=== PATIENT | male | born 1950 | race African-American/Black ===

== ENCOUNTER 2017-05-11 20:11 | Inpatient (IN) | payer MEDICARE, OTHER ==
[2017-05-11 21:50] VITALS: BMI 28.1
[2017-05-11] MEDS ORDERED: LIDOCAINE PATCH REMOVAL MC SCH (22:00)
--- NOTE | 2017-05-11 22:26 | HP ---
COWS - Scale Resting Pulse: 0= CA 80 or Below Sweatin= Chills/Flushing Restless Observation: 1= Difficult to Sit Still Pupil Size: 0= Normal to Room Light Bone or Joint Aches: 2= Severe Diffuse Aches Runny Nose/ Eye Tearin= Runny Nose/Eyes GI Upset > 30mins: 2= Nausea/Diarrhea Tremor Observation: 2= Slight Tremor Visible Yawning Observation: 1= 1-2x During Session Anxiety or Irritability: 2=Irritable/Anxious Goose Flesh Skin: 0=Smooth Skin COWS Score: [address] [facility] Chief Complaint: withdrawal sx Allergies/Adverse Reactions: Allergies Allergy/AdvReac Type Severity Reaction Status Date / Time No Known Allergies Allergy Verified 05/11/17 22:18 History of Present Illness: 66 years old male with long history of heroin cocaine dependence, has hiv bph gerd hypertension hyperlipidemia, and depression is admitted to detox Exam Limitations: No Limitations - Ebola screening Have you traveled outside of the country in the last 21 days: No (N) Have you had contact with anyone from an Ebola affected area: No Have you been sick,other than usual withdrawal symptoms: No Do you have a fever: No - Review of Systems Constitutional: Changes in sleep, Weight Stable EENT: reports: Dental Problems (upper teeth missing) Respiratory: reports: SOB with Exertion, Productive cough (white) Cardiac: reports: No Symptoms Reported GI: reports: Nausea, Poor Fluid Intake, Indigestion, Abdominal cramping : reports: Incontinence Musculoskeletal: reports: Back Pain, Joint Pain, Muscle Pain, Neck Pain Integumentary: reports: No Symptoms Reported Neuro: reports: Tremors Endocrine: reports: No Symptoms Reported Hematology: reports: No Symptoms Reported Psychiatric: reports: Judgement Intact, Orientated x3, Anxious, Depressed Other Systems: Reviewed and Negative Patient History - Patient Medical History Hx Anemia: No Hx Asthma: No Hx Chronic Obstructive Pulmonary Disease (COPD): No Hx Cancer: No Hx Cardiac Disorders: No Hx Congestive Heart Failure: No Hx Hypertension: Yes Hx Hypercholesterolemia: Yes Hx Pacemaker: No HX Cerebrovascular Accident: No Hx Seizures: No Hx Dementia: No Hx Diabetes: No Hx Gastrointestinal Disorders: Yes Hx Liver Disease: No Hx Genitourinary Disorders: Yes Hx Sexually Transmitted Disorders: No Hx Renal Disease (ESRD): No Hx Thyroid Disease: No Hx Human Immunodeficiency Virus (HIV): Yes (1985) Hx Hepatitis C: No Hx Depression: Yes Hx Suicide Attempt: No Hx Bipolar Disorder: No Hx Schizophrenia: No - Patient Surgical History Past Surgical History: Yes Hx Neurologic Surgery: No Hx Cataract Extraction: No Hx Cardiac Surgery: No Hx Lung Surgery: No Hx Breast Surgery: No Hx Breast Biopsy: No Hx Abdominal Surgery: No Hx Appendectomy: No Hx Cholecystectomy: No Hx Genitourinary Surgery: No Hx Orthopedic Surgery: Yes (hips bilaterally 1987) Anesthesia Reaction: No - PPD History Previous Implant?: Yes Documented Results: Negative w/o proof Implanted On Prior R Admission?: No PPD to be Administered?: Yes - Smoking Cessation Smoking history: Never smoked Have you smoked in the past 12 months: No Hx Chewing Tobacco Use: No Initiated information on smoking cessation: No - Substance & Tx. History Hx Alcohol Use: Yes Hx Substance Use: Yes Substance Use Type: Alcohol, Cocaine, Heroin Hx Substance Use Treatment: Yes (01/2017 [facility]) - Substances Abused Alcohol Route: Oral Frequency: 1-2 times per week Amount used: [id number] Age of first use: 11 Date of Last Use: 05/11/17 Heroin Route: Inhalation Frequency: Daily Amount used: 20 bags Age of first use: 15 Date of Last Use: 05/11/17 Cocaine Route: Inhalation Frequency: 1-2 times per week Amount used: 50$ Age of first use: 19 Date of Last Use: 05/11/17 Family Disease History - Family Disease History Family Disease History: Other: Father (), Mother () Admission Physical Exam S - Vital Signs Vital Signs: Vital Signs - 24 hr 05/11/17 21:48 Temperature 97.2 F L Pulse Rate 76 Respiratory 18 Rate Blood Pressure 122/77 - Physical General Appearance: Yes: Nourished, Appropriately Dressed, Mild Distress, Alcohol on Breath, Tremorous, Irritable, Sweating, Anxious HEENTM: Yes: Hearing grossly Normal, Normal ENT Inspection, Normocephalic, Normal Voice Respiratory: Yes: Chest Non-Tender, Lungs Clear, Normal Breath Sounds, No Respiratory Distress, No Accessory Muscle Use Neck: Yes: Supple, Trachea in good position Breast: Yes: Breasts Symetrical Cardiology: Yes: Regular Rhythm, Regular Rate, S1, S2 Abdominal: Yes: Non Tender, Soft, Increased Bowel Sounds Genitourinary: Yes: Within Normal Limits Back: Yes: Normal Inspection Musculoskeletal: Yes: full range of Motion, Gait Steady, Back pain, Muscle Pain Extremities: Yes: Normal Inspection, Normal Range of Motion, Non-Tender, Tremors Neurological: Yes: Fully Oriented, Alert, Motor Strength 5/5, Normal Response, Depressed Affect Integumentary: Yes: Warm Lymphatic: Yes: Within Normal Limits - Diagnostic (1) Opioid dependence with withdrawal Current Visit: Yes Status: Acute (2) Depression (emotion) Current Visit: Yes Status: Suspected Qualifiers: Depression Type: dysthymia Qualified Code(s): F34.1 - Dysthymic disorder (3) HIV (human immunodeficiency virus infection) Current Visit: Yes Status: Chronic (4) BPH (benign prostatic hyperplasia) Current Visit: Yes Status: Chronic Qualifiers: Lower urinary tract symptom presence: symptoms present Lower urinary tract symptom detail: post-void dribbling Qualified Code(s): N40.1 - Benign prostatic hyperplasia with lower urinary tract symptoms; N39.43 - Post- void dribbling (5) GERD (gastroesophageal reflux disease) Current Visit: Yes Status: Chronic Qualifiers: Esophagitis presence: without esophagitis Qualified Code(s): K21.9 - Gastro-esophageal reflux disease without esophagitis (6) Hypertension Current Visit: Yes Status: Chronic Qualifiers: Hypertension type: essential hypertension Qualified Code(s): I10 - Essential (primary) hypertension (7) Hyperlipidemia Current Visit: Yes Status: Chronic Qualifiers: Hyperlipidemia type: pure hypercholesterolemia Qualified Code(s): E78.00 - Pure hypercholesterolemia, unspecified; E78.0 - Pure hypercholesterolemia Cleared for Admission [facility] - Detox or Rehab [facility] Level of Care: Medically Managed Detox Regimen/Protocol: Methadone [facility] Breath Alcohol Content Breath Alcohol Content: 0.018 Urine Drug Screen - Results Drug Screen Negative: No Urine Drug Screen Results: KIRSTY-Cocaine, OPI-Opiates, TCA-Tricyclic Antidepress, OXY-Oxycodone
[2017-05-11] MEDS ORDERED: ACETAMINOPHEN 325 MG TABLET (FP) PO PRN (22:34)
[2017-05-11] MEDS ORDERED: diphenhydrAMINE HCL 50 MG CAPSULE PO PRN (22:34)
[2017-05-11] MEDS ORDERED: MENTHOL/PHENOL 1 EACH UD MM PRN (22:34)
[2017-05-11] MEDS ORDERED: MAG HYDROX/AL HYDROX/SIMETH 30 ML UNIT-DOSE CUP PO PRN (22:34)
[2017-05-11] MEDS ORDERED: P-EPHED 60MG/TRIPROLIDI 2.5MG TABLET PO PRN (22:34)
[2017-05-11] MEDS ORDERED: MAGNESIUM CITRATE 300 ML BOTTLE PO PRN (22:34)
[2017-05-11] MEDS ORDERED: guaiFENesin/D-METHORPHAN HB 10 ML UNIT-DOSE CUPS PO PRN (22:34)
[2017-05-11] MEDS ORDERED: METHADONE HCL 10 MG TABLET (FOR DETOX USE ONLY) PO ONE ×2 (22:34→23:00)
[2017-05-11] MEDS ORDERED: diazePAM 5 MG TABLET PO PRN (22:34)
[2017-05-11] MEDS ORDERED: LOPERAMIDE HCL 2 MG CAPSULE PO PRN (22:34)
[2017-05-11] MEDS ORDERED: MAGNESIUM HYDROX 2400MG/30ML ORAL SUSPENSION 30 ML CUP PO PRN (22:34)
[2017-05-11 23:45] VITALS: PULSE 80; TEMP 98.9
[2017-05-12 00:48] LABS: URINE APPEARANCE SLCLOUDY; URINE BILIRUBIN NEGATIVE (NEGATIVE); URINE BLOOD NEGATIVE (NEGATIVE); URINE COLOR YELLOW; URINE GLUCOSE (UA) NEGATIVE (NEGATIVE); URINE KETONE NEGATIVE (NEGATIVE); URINE LEUK ESTERASE NEGATIVE (NEGATIVE); URINE NITRITE NEGATIVE (NEGATIVE); URINE PROTEIN NEGATIVE (NEGATIVE)
--- NOTE | 2017-05-12 02:06 | PN ---
[facility] Progress Note Note: [employer] called to the floor after RN reported pt. was bleeding profusely from his right foot. Upon reaching the floor, pt. was found on the ground with blood soaked towels wrapped round his foot and blood on the ground. Reportedly the pt. had stated that had a history of varicose veins bursting. Pt. was hypotenisve and lethargic. 2L of O2 was administered via NC, pressure was applied to his right foot. LOC improved. Pt. stated he needed to move his bowels. He insisted that he needed to use the bathroom immediately. He was advised to stay on the ground and evacuate his bowels on the ground but the refused and dragged himself into the bathroom and onto the toilet. Pt. lost consciousness after using the toilet. He was put on the ground and Ambu bag applied with 15L of oxygen. IV inserted and NS administered. LOC improved. EMS arrived and he was transported to [facility] ER for continued care. Report given to Dr. Doherty.
[2017-05-12 02:43] VITALS: BP 90/60
[2017-05-12] MEDS: CYCLOBENZAPRINE HCL 10 MG TABLET (FP) PO SCH ×2 (08:19→14:16)
--- NOTE | 2017-05-12 09:59 | EKG ---
Test Reason : Blood Pressure : / mmHG Vent. Rate : 092 BPM Atrial Rate : 092 BPM P-R Int : 148 ms QRS Dur : 094 ms QT Int : 384 ms P-R-T Axes : 046 032 016 degrees QTc Int : 474 ms NORMAL SINUS RHYTHM INCOMPLETE RIGHT BUNDLE BRANCH BLOCK BORDERLINE ECG NO PREVIOUS ECGS AVAILABLE Confirmed by MALIK DYER MD ([id number]) on 05/12/2017 9:59:24 AM Referred By: Confirmed By:MALIK DYER MD
[2017-05-12] MEDS ORDERED: PRENATAL VITAMINS W/ FOLIC ACID TABLET (FP) PO SCH (10:00)
[2017-05-12] MEDS ORDERED: PATIENT'S OWN MEDICATION (NON-FORMULARY) (Darunavir Ethanolate [Prezista -] 800 MG) PO SCH (10:00)
[2017-05-12] MEDS ORDERED: HYDROCHLOROTHIAZIDE 25 MG TABLET (FP) PO SCH (10:00)
[2017-05-12] MEDS ORDERED: PATIENT'S OWN MEDICATION (NON-FORMULARY) (Simvastatin 20 MG) PO SCH ×2 (10:00→22:00)
[2017-05-12] MEDS ORDERED: PATIENT'S OWN MEDICATION (NON-FORMULARY) (Emtricitabine/Tenofovir (Tdf) [Truvada 200 Mg-30 PO SCH (10:00)
[2017-05-12] MEDS ORDERED: PATIENT'S OWN MEDICATION (NON-FORMULARY) (Ritonavir [Norvir -] 100 MG) PO SCH (10:00)
[2017-05-12] MEDS ORDERED: LIDOCAINE 5% TOPICAL PATCH TP SCH (10:00)
[2017-05-12] MEDS ORDERED: METHADONE HCL 10 MG TABLET (FOR DETOX USE ONLY) PO ONE (10:00)
--- NOTE | 2017-05-12 14:07 | CONSULT ---
[facility] Psychiatric Consult - Data Date of interview: 05/12/17 Admission source: [facility] Identifying data: Not available for psychiatric evaluation.According to records, the patient was transferred earlier,today,to [facility] for medical emergency.
[2017-05-12] MEDS ORDERED: TAMSULOSIN HCL 0.4 MG CAP.ER.24H (FP) PO SCH (22:00)
[2017-05-12] MEDS ORDERED: THIAMINE HCL 100 MG TABLET (FP) PO SCH (22:00)
[2017-05-13] MEDS ORDERED: METHADONE HCL 5 MG TABLET (FOR DETOX USE ONLY) PO ONE (10:00)
[2017-05-14] MEDS ORDERED: METHADONE HCL 5 MG TABLET (FOR DETOX USE ONLY) PO ONE (10:00)
[2017-05-15] MEDS ORDERED: METHADONE HCL 10 MG TABLET (FOR DETOX USE ONLY) PO ONE (10:00)
[2017-05-16] MEDS ORDERED: METHADONE HCL 5 MG TABLET (FOR DETOX USE ONLY) PO ONE (06:00)
== END 2017-05-12 09:20 | disposition short-term general hospital (02) | DRG 897 ==
LOC: YASAS 20:11 → Y3N 22:34
PROVIDERS: ADMIT Internal Medicine; ATTEND Internal Medicine
PROC: HZ2ZZZZ Detoxification Services for Substance Abuse Treatment (ICD-10-PCS; principal; 2017-05-10)
DX: F11.23 Opioid dependence with withdrawal (principal); F34.1 Dysthymic disorder; I10 Essential (primary) hypertension; E78.00 Pure hypercholesterolemia, unspecified; K21.9 Gastro-esophageal reflux disease without esophagitis; N40.1 Benign prostatic hyperplasia with lower urinary tract symptoms; R35.0 Frequency of micturition; Z21 Asymptomatic human immunodeficiency virus [HIV] infection status
CPT/HCPCS: 81003; 93005; 93010

== ENCOUNTER 2017-05-12 01:38 | Inpatient (IN) | payer MEDICARE, OTHER ==
--- NOTE | 2017-05-12 01:45 | PDOC ---
History of Present Illness - General History Source: Patient, EMS, Old Records Exam Limitations: No Limitations - History of Present Illness Initial Comments: 05/12/17 01:49 The patient is a 66 year old female, with significant past medical history of HIV, BPH, GERD, hypertension, hyperlipidemia, depression who was BIB EMS from [facility] s/p a syncopal episode in the shower. The staff states that he was in the shower for a long time when he was found passed out. As per EMT, he popped 3 varicose veins and lost a decent amount of blood. His blood pressure was initially in the 60s, but is now in the 80s. The patient states that he the vein burst and he was down in the shower for a long time. He does not have any complaints at the moment. Denies chest pain, SOB. Denies fever, chills, nausea, vomiting. Allergies: NKDA Social Hx: Cocain use - currently undergoing Detox at [facility] <Zoraida Soria - Last Filed: 05/12/17 06:46> - General History Source: Patient, EMS <Rickie Cunningham - Last Filed: 05/12/17 19:55> - General Stated Complaint: SYNCOPE Time Seen by Provider: 05/12/17 01:45 Past History <Zoraida Soria - Last Filed: 05/12/17 06:46> - Past Medical History Anemia: No Asthma: No Cancer: No Cardiac Disorders: No CVA: No COPD: No CHF: No Dementia: No Diabetes: No GI Disorders: Yes Disorders: Yes HTN: Yes Hypercholesterolemia: Yes Kidney Stones: No Liver Disease: No Suicide Attempt (Hx): No Seizures: No Thyroid Disease: No - Surgical History Abdominal Surgery: No Appendectomy: No Cardiac Surgery: No Cholecystectomy: No Lung Surgery: No Neurologic Surgery: No Orthopedic Surgery: Yes (hips bilaterally 1988) - Reproductive History Testicular Surgery: No - Psycho/Social/Smoking Cessation Hx Anxiety: No Suicidal Ideation: No Smoking History: Never smoked Have you smoked in the past 12 months: No Hx Alcohol Use: Yes Drug/Substance Use Hx: Yes Substance Use Type: Alcohol, Cocaine, Heroin Hx Substance Use Treatment: Yes (01/2017 [facility]) <Rickie Cunningham - Last Filed: 05/12/17 19:55> - Past Medical History Allergies/Adverse Reactions: Allergies Allergy/AdvReac Type Severity Reaction Status Date / Time No Known Allergies Allergy Verified 05/11/17 22:18 Home Medications: Ambulatory Orders Darunavir Ethanolate [Prezista -] 800 mg PO DAILY 05/11/17 Emtricitabine/Tenofovir (Tdf) [Truvada 200 mg-300 mg Tablet] 1 each PO DAILY 08/15 Esomeprazole Magnesium 40 mg PO BID 05/11/17 Ritonavir [Norvir -] 100 mg PO DAILY 05/11/17 Simvastatin [Zocor -] 20 mg PO DAILY 05/11/17 Review of Systems - Review of Systems Able to Perform ROS?: Yes Comments:: 05/12/17 02:16 CONSTITUTIONAL: Present: 1 syncopal episode Absent: fever, chills, diaphoresis, generalized weakness, malaise, loss of appetite HEENT: Absent: rhinorrhea, nasal congestion, throat pain, throat swelling, difficulty swallowing, mouth swelling, ear pain, eye pain, visual Changes CARDIOVASCULAR: Absent: chest pain, syncope, palpitations, irregular heart rate, lightheadedness , peripheral edema RESPIRATORY: Absent: cough, shortness of breath, dyspnea with exertion, orthopnea, wheezing, stridor, hemoptysis MUSCULOSKELETAL: Absent: myalgia, arthralgia, joint swelling SKIN: Present: varicose veins on the right lower extremity Absent: rash, itching, pallor NEUROLOGIC: Absent: headache, focal weakness or paresthesias, dizziness, unsteady gait, seizure, mental status changes, bladder or bowel incontinence PSYCHIATRIC: Absent: anxiety, depression, suicidal or homicidal ideation, hallucinations. <Zoraida Soria - Last Filed: 05/12/17 06:46> *Physical Exam - Vital Signs Last Vital Signs Temp Pulse Resp BP Pulse Ox 105 H 18 74/42 93 L 05/12/17 01:46 05/12/17 01:46 05/12/17 01:46 05/12/17 01:46 - Physical Exam Comments: 05/12/17 03:31 GENERAL: Well developed, well nourished. Awake and alert. In mild distress. HEENT: Normocephalic, atraumatic. PERRLA, EOMI. No conjunctival pallor. Sclerae are non -icteric. Moist mucous membranes. Oropharynx is clear. NECK: Supple. Full ROM. No JVD. Carotid pulses 2+ and symmetric, without bruits. No thyromegaly. No lymphadenopathy. CARDIOVASCULAR: Regular rate and rhythm. No murmurs, rubs, or gallops. Distal pulses are 2+ and symmetric. PULMONARY: No evidence of respiratory distress. Lungs clear to auscultation bilaterally. No wheezing, rales or rhonchi. ABDOMINAL: Soft. Non-tender. Non-distended. No rebound or guarding. No organomegaly. Normoactive bowel sounds. MUSCULOSKELETAL Normal range of motion at all joints. No bony deformities or tenderness. No CVA tenderness. EXTREMITIES: No cyanosis. No clubbing. No edema. No calf tenderness. Moving all extremities SKIN: +1 small non bleeding wound on the lateral right foot. Warm and dry. Normal capillary refill. No rashes. No jaundice. NEUROLOGICAL: Alert, awake, appropriate. No focal neurological deficits. <Zoraida Soria - Last Filed: 05/12/17 06:46> Heart Score/ECG Review #1 General ECG Interpretation: Sinus Rhythm 05/12/17 06:45 Sinus rhythm with a rate of 92bpm #2 General ECG Interpretation: Sinus Rhythm 05/12/17 06:46 sinus rhythm with a rate of 85bpm. <Zoraida Soria - Last Filed: 05/12/17 06:46> ED Treatment Course - LABORATORY CBC & Chemistry Diagram: 05/12/17 02:04 05/12/17 02:04 <Zoraida Soria - Last Filed: 05/12/17 06:46> - LABORATORY CBC & Chemistry Diagram: 05/12/17 02:04 05/12/17 06:20 <Rickie Cunningham - Last Filed: 05/12/17 19:55> Medical Decision Making - Medical Decision Making 05/12/17 04:27 Pt feeling better after receiving 40mg of Methadone. BP, nausea, vomiting and diarrhea improved. Pt is drinking fluids at this time without vomiting. Will re-check labs in three hours. Not allowing and venipuncture at this time. 05/12/17 06:51 attempted several times to attained venous access. Pt refused IO and central venous access. Pt states he is feeling better. he did allow repeated of his labs <Rickie Cunningham Last Filed: 05/12/17 19:55> *DC/Admit/Observation/Transfer - Attestations Scribe Attestion: 05/12/17 02:16 Documentation prepared by LUCY Cisneros, acting as medical laboratory assistant for Rickie Cunningham MD. <Zoraida Soria - Last Filed: 05/12/17 06:46> <Rickie Cunningham - Last Filed: 05/12/17 19:55> Diagnosis at time of Disposition: Hypotension
[2017-05-12] MEDS ORDERED: SODIUM CHLORIDE 1,000 ML IV STA ×3 (01:46→08:33)
[2017-05-12] MEDS ORDERED: METHADONE HCL 10 MG TABLET PO ONE (02:12)
[2017-05-12] MEDS ORDERED: METHADONE HCL 40 MG DISPERSABLE TABLET ONE (02:14)
[2017-05-12 02:29] LABS: BASOPHIL 0.7 % (0-2.0); EOSINOPHIL 2.8 % (0-4.5); MCH 28.2 pg (25.7-33.7); MCHC 32.8 g/dl (32.0-35.9); MEAN CELL VOLUME 85.9 fl (80-96); MEAN PLT VOLUME 6.8 fl (7.5-11.1); NEUTROPHILS 60.6 % (42.8-82.8); PLATELET COUNT 229 K/MM3 (134-434); RDW 15.6 % (11.9-15.9); WHITE BLOOD COUNT 7.6 K/mm3 (4.0-10.0)
[2017-05-12 02:46] LABS: INR 1.21 (0.82-1.09); PROTHROMBIN TIME (PATIENT) 13.4 SEC (9.98-11.88)
[2017-05-12 02:55] LABS: ALBUMIN 3.2 g/dl (3.4-5.0); ANION GAP 12 (8-16); BILIRUBIN,TOTAL 0.4 mg/dL (0.2-1.0); CALCIUM 8.3 mg/dL (8.5-10.1); CO2 25 mmol/L (21-32); CREATININE 1.8 mg/dL (0.7-1.3); GLUCOSE,RANDOM 171 mg/dL (74-106); MAGNESIUM 1.8 mg/dL (1.8-2.4); SGOT/AST 24 U/L (15-37); SGPT/ALT 19 U/L (12-78); TOT PROT 6.4 g/dl (6.4-8.2)
[2017-05-12 02:58] LABS: ALK PHOS 57 U/L (45-117); CPK 385 IU/L (39-308); TROPONIN I < 0.02 ng/ml (0.00-0.05)
[2017-05-12] MEDS ORDERED: POTASSIUM CHLORIDE TABS 20 MEQ TABLET.ER (FP) PO ONE ×4 (03:09→03:45)
[2017-05-12 07:09] LABS: CPK 365 IU/L (39-308); TROPONIN I < 0.02 ng/ml (0.00-0.05)
--- NOTE | 2017-05-12 09:27 | PDOC ---
*Physical Exam - Vital Signs Last Vital Signs Temp Pulse Resp BP Pulse Ox 98 F 83 18 89/54 100 05/12/17 07:12 05/12/17 09:15 05/12/17 09:15 05/12/17 09:15 05/12/17 09:15 ED Treatment Course - LABORATORY CBC & Chemistry Diagram: 05/12/17 02:04 05/12/17 06:20 - ADDITIONAL ORDERS Additional order review: Laboratory Results 05/12/17 05/12/17 05/12/17 08:35 06:20 02:04 INR Sodium Potassium 3.9 D Chloride Carbon Dioxide Anion Gap BUN Creatinine Creat Clearance w eGFR Random Glucose Lactic Acid 2.3 H* 2.6 H* Calcium Magnesium Total Bilirubin AST ALT Alkaline Phosphatase Creatine Kinase 365 H Creatine Kinase Index 0.6 CK-MB (CK-2) 2.540 Troponin I < 0.02 B-Natriuretic Peptide Total Protein Albumin Lipase Blood Type Antibody Screen 05/12/17 05/12/17 05/12/17 02:04 02:04 02:04 INR 1.21 H Sodium 138 Potassium 2.9 L* Chloride 101 Carbon Dioxide 25 Anion Gap 12 BUN 18 Creatinine 1.8 H Creat Clearance w eGFR 37.82 Random Glucose 171 H Lactic Acid Calcium 8.3 L Magnesium 1.8 Total Bilirubin 0.4 AST 24 ALT 19 Alkaline Phosphatase 57 Creatine Kinase 385 H Creatine Kinase Index 0.8 CK-MB (CK-2) 3.208 Troponin I < 0.02 B-Natriuretic Peptide 293.16 H Total Protein 6.4 Albumin 3.2 L Lipase 59 L Blood Type A NEGATIVE Antibody Screen Negative 05/12/17 02:04 RBC 2.97 L MCV 85.9 MCHC 32.8 RDW 15.6 MPV 6.8 L Neutrophils % 60.6 Lymphocytes % 28.0 Monocytes % 7.9 Eosinophils % 2.8 Basophils % 0.7 - Medications Given in the ED: ED Medications Discontinued Medications Generic Name Dose Route Start Last Admin Trade Name Freq PRN Reason Stop Dose Admin Sodium Chloride 1,000 mls @ 1,000 mls/hr 05/12/17 01:46 05/12/17 06:34 Normal Saline - IV 05/12/17 02:45 Not Given ASDIR STA Sodium Chloride 1,000 mls @ 1,000 mls/hr 05/12/17 01:46 05/12/17 06:34 Normal Saline - IV 05/12/17 02:45 Not Given ASDIR STA Methadone HCl 40 mg 05/12/17 02:12 05/12/17 02:20 Dolophine - PO 05/12/17 02:13 40 mg ONCE ONE Administration Potassium Chloride 40 meq 05/12/17 03:09 05/12/17 03:25 K-Dur - PO 05/12/17 03:10 40 meq ONCE ONE Administration Potassium Chloride 40 meq 05/12/17 03:44 05/12/17 05:30 K-Dur - PO 05/12/17 03:45 40 meq ONCE ONE Administration Medical Decision Making - Medical Decision Making 05/12/17 09:21 Sign out received at 7AM today. Pt was reportedly hypotensive throughout night shift supervisor, with some improvement in BP s/p PO fluids. Pt was initially refusing IV access overnight, but consented to it in AM. Upon my evaluation, pt is awake, alert, in no distress. Mentating appropriately despite SBP 80s. Repeat lactate trending downwards (2.6-2.3) Pt given 1L NS per IV, with improvement in HR from 100 to 80s. However, BP persistently in 80s. Pt currently afebrile with no infectious symptoms. BP likely 2/2 Will admit to obs for continued hydration and trending of lactate. *DC/Admit/Observation/Transfer Diagnosis at time of Disposition: Hypotension - Discharge Dispostion Admit: Yes
--- NOTE | 2017-05-12 11:32 | HP ---
Admitting History and Physical - Admission Chief Complaint: hypotension History of Present Illness: This 66 year old male with HIV, HTN, HLD, GERD, depression was brought in from [facility] for a syncopal episode. Per the patient he was in the shower when his vericose veins burst in his R foot, (which time to time happens), he was asking for help to stop the bleeding he couldn't do it himself. Per the Ed record, pt was found by staff in the shower passed out. Per report he popped 3 vericose veins, the bleeding was brought under control and stopped in the ED. He was found to be hypotensive with an elevated lactate. Initially refusing fluids and IV access he agreed to it this morning. Currently, he reports withdrawal symptoms, he feels sick. He had only been in detox for one day at [facility]. He denies hallucinations, palpitations, diaphoresis, sob, or chest pain. HIV doctor: Dr. Lester, [facility] History Source: Patient Limitations to Obtaining History: No Limitations - Past Medical History Cardiovascular: Yes: HTN, Hyperlipdemia Infectious Disease: Yes: HIV - Smoking History Smoking history: Never smoked Have you smoked in the past 12 months: No - Alcohol/Substance Use Hx Alcohol Use: Yes - Social History Usual Living Arrangement: Yes: Alone ADL: Independent History of Recent Travel: No Home Medications - Allergies Allergies/Adverse Reactions: Allergies Allergy/AdvReac Type Severity Reaction Status Date / Time No Known Allergies Allergy Verified 05/11/17 22:18 - Home Medications Home Medications: Ambulatory Orders Darunavir Ethanolate [Prezista -] 800 mg PO DAILY 05/11/17 Emtricitabine/Tenofovir (Tdf) [Truvada 200 mg-300 mg Tablet] 1 each PO DAILY 08/15 Esomeprazole Magnesium 40 mg PO BID 05/11/17 Ritonavir [Norvir -] 100 mg PO DAILY 05/11/17 Simvastatin [Zocor -] 20 mg PO DAILY 05/11/17 Family Disease History - Family Disease History Family Disease History: Other: Father (), Mother () Review of Systems - Review of Systems Constitutional: reports: No Symptoms Eyes: reports: No Symptoms HENT: reports: No Symptoms Neck: reports: No Symptoms Cardiovascular: reports: No Symptoms Respiratory: reports: No Symptoms Gastrointestinal: reports: No Symptoms Genitourinary: reports: No Symptoms Musculoskeletal: reports: No Symptoms Integumentary: reports: Wound (r foot) Neurological: reports: Syncope Endocrine: reports: No Symptoms Hematology/Lymphatic: reports: No Symptoms Psychiatric: reports: No Symptoms Physical Examination Vital Signs: Vital Signs Temperature 98 F 05/12/17 10:08 Pulse Rate 73 05/12/17 10:42 Respiratory Rate 16 05/12/17 10:42 Blood Pressure 99/73 05/12/17 10:42 O2 Sat by Pulse Oximetry (%) 100 05/12/17 10:42 Constitutional: Yes: Calm Eyes: Yes: Conjunctiva Clear HENT: Yes: Atraumatic Neck: Yes: Supple Cardiovascular: Yes: Regular Rate and Rhythm, S1, S2 Respiratory: Yes: Regular, CTA Bilaterally Gastrointestinal: Yes: Normal Bowel Sounds, Soft Renal/: Yes: WNL Breast(s): Yes: WNL Musculoskeletal: Yes: WNL Extremities: Yes: WNL Edema: Yes Edema: LUE: 1+ (pedal ) Integumentary: Yes: Venous Stasis Changes (rle), Other (r foot wound small, circular, pin point, dried blood, clean) Wound/Incision: Yes: Open to air Neurological: Yes: Alert, Oriented, Cran Nerves II-XII Intact Psychiatric: Yes: WNL Imaging - Results Chest X-ray: Report Reviewed, Image Reviewed Problem List - Problems (1) Hypotension Code(s): I95.9 - HYPOTENSION, UNSPECIFIED (2) Opioid dependence with withdrawal Code(s): F11.23 - OPIOID DEPENDENCE WITH WITHDRAWAL (3) BPH (benign prostatic hyperplasia) Code(s): N40.0 - BENIGN PROSTATIC HYPERPLASIA WITHOUT LOWER URINRY TRACT SYMP Qualifiers: Lower urinary tract symptom presence: symptoms present Lower urinary tract symptom detail: post-void dribbling Qualified Code(s): N40.1 - Benign prostatic hyperplasia with lower urinary tract symptoms; R35.0 - Frequency of micturition (4) GERD (gastroesophageal reflux disease) Code(s): K21.9 - GASTRO-ESOPHAGEAL REFLUX DISEASE WITHOUT ESOPHAGITIS Qualifiers: Esophagitis presence: without esophagitis Qualified Code(s): K21.9 - Gastro-esophageal reflux disease without esophagitis (5) HIV (human immunodeficiency virus infection) Code(s): B20 - HUMAN IMMUNODEFICIENCY VIRUS [HIV] DISEASE (6) Hyperlipidemia Code(s): E78.5 - HYPERLIPIDEMIA, UNSPECIFIED Qualifiers: Hyperlipidemia type: pure hypercholesterolemia Qualified Code(s): E78.00 - Pure hypercholesterolemia, unspecified; E78.0 - Pure hypercholesterolemia (7) Hypertension Code(s): I10 - ESSENTIAL (PRIMARY) HYPERTENSION Qualifiers: Hypertension type: essential hypertension Qualified Code(s): I10 - Essential (primary) hypertension (8) Depression (emotion) Code(s): F32.9 - MAJOR DEPRESSIVE DISORDER, SINGLE EPISODE, UNSPECIFIED Qualifiers: Depression Type: dysthymia Qualified Code(s): F34.1 - Dysthymic disorder (9) Elevated lactic acid level Code(s): R79.89 - OTHER SPECIFIED ABNORMAL FINDINGS OF BLOOD CHEMISTRY Assessment/Plan Assessment: 66 year old male admitted with hypotension and elevated lactic acid level Plan: 1. Hypotension - Likely from blood loss - Responding well to IVF - Continue NS 100cc/hr 2. Elevated lactic acid - Trend lactic level - Continue IVF 3. HIV - Continue HIV meds 4. Substance abuse - Gonzalo argueta consult - Methadone 40mg x2 in ED 5. R foot wound - Continue daily wound care - Monitor for bleeding Visit type - Emergency Visit Emergency Visit: Yes ED Registration Date: 05/12/17 Care time: The patient presented to the Emergency Department on the above date and was hospitalized for further evaluation of their emergent condition. - New Patient This patient is new to me today: Yes Date on this admission: 05/12/17 - Critical Care Critical Care patient: No
[2017-05-12] MEDS: SODIUM CHLORIDE 1,000 ML IV SCH (12:03)
[2017-05-12 13:52] VITALS: BMI 28.1
[2017-05-12] MEDS: RITONAVIR 100 MG TABLET PO SCH (14:35)
[2017-05-12] MEDS: DARUNAVIR ETHANOLATE 800 MG TAB PO SCH (14:36)
[2017-05-12] MEDS: EMTRICITABINE 200MG/TENOFOVIR 300MG PO SCH (14:36)
[2017-05-12 15:11] LABS: URINE APPEARANCE SLCLOUDY; URINE BILIRUBIN NEGATIVE (NEGATIVE); URINE BLOOD NEGATIVE (NEGATIVE); URINE COLOR YELLOW; URINE GLUCOSE (UA) NEGATIVE (NEGATIVE); URINE KETONE NEGATIVE (NEGATIVE); URINE LEUK ESTERASE NEGATIVE (NEGATIVE); URINE NITRITE NEGATIVE (NEGATIVE); URINE PROTEIN NEGATIVE (NEGATIVE); URINE UROBILINOGEN NEGATIVE mg/dL (0.2-1.0)
--- NOTE | 2017-05-12 18:08 | PN ---
S Progress Note (SOAP) Subjective: 66 y/o man sent to [facility] because of ? syncopal episode. Objective: 05/12/17 18:06 Vital Signs - 8 hr 05/12/17 05/12/17 05/12/17 10:08 10:42 12:04 Temperature 98 F Pulse Rate Pulse Rate [ 88 73 81 Apical] Respiratory 18 16 16 Rate Blood Pressure Blood Pressure 85/60 99/73 87/44 [Left Arm] O2 Sat by Pulse 100 100 100 Oximetry (%) 05/12/17 05/12/17 05/12/17 12:20 12:46 13:40 Temperature 97.8 F 98.4 F Pulse Rate 99 H Pulse Rate [ 88 87 Apical] Respiratory 16 16 20 Rate Blood Pressure 102/69 Blood Pressure 86/56 87/58 [Left Arm] O2 Sat by Pulse 100 100 Oximetry (%) 05/12/17 14:33 Temperature Pulse Rate Pulse Rate [ Apical] Respiratory Rate Blood Pressure Blood Pressure [Left Arm] O2 Sat by Pulse 100 Oximetry (%) Laboratory Last Values WBC 7.6 K/mm3 (4.0-10.0) 05/12/17 02:04 RBC 2.97 M/mm3 (4.00-5.60) L 05/12/17 02:04 Hgb 8.4 GM/dL (11.7-16.9) L 05/12/17 02:04 Hct 25.5 % (35.4-49) L 05/12/17 02:04 MCV 85.9 fl (80-96) 05/12/17 02:04 MCH 28.2 pg (25.7-33.7) 05/12/17 02:04 MCHC 32.8 g/dl (32.0-35.9) 05/12/17 02:04 RDW 15.6 % (11.9-15.9) 05/12/17 02:04 Plt Count 229 K/MM3 (134-434) 05/12/17 02:04 MPV 6.8 fl (7.5-11.1) L 05/12/17 02:04 Neutrophils % 60.6 % (42.8-82.8) 05/12/17 02:04 Lymphocytes % 28.0 % (8-40) 05/12/17 02:04 Monocytes % 7.9 % (3.8-10.2) 05/12/17 02:04 Eosinophils % 2.8 % (0-4.5) 05/12/17 02:04 Basophils % 0.7 % (0-2.0) 05/12/17 02:04 INR 1.21 (0.82-1.09) H 05/12/17 02:04 Sodium 138 mmol/L (136-145) 05/12/17 02:04 Potassium 3.9 mmol/L (3.5-5.1) D 05/12/17 06:20 Chloride 101 mmol/L (98-107) 05/12/17 02:04 Carbon Dioxide 25 mmol/L (21-32) 05/12/17 02:04 Anion Gap 12 (8-16) 05/12/17 02:04 BUN 18 mg/dL (7-18) 05/12/17 02:04 Creatinine 1.8 mg/dL (0.7-1.3) H 05/12/17 02:04 Creat Clearance w eGFR 37.82 (>60) 05/12/17 02:04 Random Glucose 171 mg/dL (74-106) H 05/12/17 02:04 Lactic Acid 1.9 mmol/L (0.4-2.0) 05/12/17 14:23 Calcium 8.3 mg/dL (8.5-10.1) L 05/12/17 02:04 Magnesium 1.8 mg/dL (1.8-2.4) 05/12/17 02:04 Total Bilirubin 0.4 mg/dL (0.2-1.0) 05/12/17 02:04 AST 24 U/L (15-37) 05/12/17 02:04 ALT 19 U/L (12-78) 05/12/17 02:04 Alkaline Phosphatase 57 U/L (45-117) 05/12/17 02:04 Creatine Kinase 365 IU/L (39-308) H 05/12/17 06:20 Creatine Kinase Index 0.6 % (0.0-5.0) 05/12/17 06:20 CK-MB (CK-2) 2.540 ng/mL (0.5-3.6) 05/12/17 06:20 Troponin I < 0.02 ng/ml (0.00-0.05) 05/12/17 06:20 B-Natriuretic Peptide 293.16 pg/ml (5-125) H 05/12/17 02:04 Total Protein 6.4 g/dl (6.4-8.2) 05/12/17 02:04 Albumin 3.2 g/dl (3.4-5.0) L 05/12/17 02:04 Lipase 59 U/L (73-393) L 05/12/17 02:04 Urine Color Yellow 05/12/17 13:30 Urine Appearance Slcloudy 05/12/17 13:30 Urine pH 6.0 (5.0-8.0) 05/12/17 13:30 Urine Protein Negative (NEGATIVE) 05/12/17 13:30 Urine Glucose (UA) Negative (NEGATIVE) 05/12/17 13:30 Urine Ketones Negative (NEGATIVE) 05/12/17 13:30 Urine Blood Negative (NEGATIVE) 05/12/17 13:30 Urine Nitrite Negative (NEGATIVE) 05/12/17 13:30 Urine Bilirubin Negative (NEGATIVE) 05/12/17 13:30 Urine Urobilinogen Negative mg/dL (0.2-1.0) 05/12/17 13:30 Blood Type A NEGATIVE 05/12/17 02:04 Antibody Screen Negative 05/12/17 02:04 labs noted Assessment: 05/12/17 18:07 Opioid dependence with withdrawal Syncopal episode Plan: Resume detox protocol
[2017-05-12] MEDS: ATORVASTATIN CA 10 MG TABLET (FP) PO SCH ×2 (22:57→23:30)
[2017-05-12] MEDS: diazePAM 5 MG TABLET PO PRN (23:29)
[2017-05-13] MEDS ORDERED: PT OWN MED DRAWER 7, Y5N ONE ×2 (09:00→18:29)
[2017-05-13] MEDS: RITONAVIR 100 MG TABLET PO SCH (09:08)
[2017-05-13] MEDS: DARUNAVIR ETHANOLATE 800 MG TAB PO SCH (09:08)
[2017-05-13] MEDS: EMTRICITABINE 200MG/TENOFOVIR 300MG PO SCH (09:08)
[2017-05-13] MEDS ORDERED: METHADONE HCL 10 MG TABLET PO ONE (10:00)
[2017-05-13] MEDS ORDERED: ACETAMINOPHEN 325 MG TABLET (FP) ONE (11:40)
[2017-05-13] MEDS: SODIUM CHLORIDE 1,000 ML IV SCH (12:00)
--- NOTE | 2017-05-13 12:47 | DS ---
Physical Exam: SUBJECTIVE: Patient seen and examine he says he feel LUE, LLE tingling as if your foot is asleep. He denies cp, sob, palpitations. OBJECTIVE: Vital Signs Period Temp Pulse Resp BP Sys/Pham Pulse Ox Last 24 Hr 98.1 F-99.2 F 67-107 16-20 87-141/51-69 100-100 PE Neuro: alert, awake, cn 2-12intact, motor 5/5 Pulm: CTAB CV: s1 s2 rrr no mrg Abd: s nt nd + bs Ext: R foot lesion, closed dried blood, no lle calf swelling, redness, edema skin: RLE venous skin changes Laboratory Results - last 24 hr 05/12/17 05/12/17 13:30 14:23 Lactic Acid 1.9 Urine Color Yellow Urine Appearance Slcloudy Urine pH 6.0 Ur Specific [place] 1.015 Urine Protein Negative Urine Glucose (UA) Negative Urine Ketones Negative Urine Blood Negative Urine Nitrite Negative Urine Bilirubin Negative Urine Urobilinogen Negative HOSPITAL COURSE: Date of Admission:05/12/17 Date of Discharge: 05/13/17 Minutes to complete discharge: 36 Discharge Summary Reason For Visit: HYPOTENSION Current Active Problems Elevated lactic acid level (Acute) Hypotension (Acute) Opioid dependence with withdrawal (Acute) BPH (benign prostatic hyperplasia) (Chronic) GERD (gastroesophageal reflux disease) (Chronic) HIV (human immunodeficiency virus infection) (Chronic) Hyperlipidemia (Chronic) Hypertension (Chronic) Hospital Course: Initial Hospital Course: Briefly, this 66 year old male with HIV, HTN, HLD, GERD, depression was brought in from [facility] for a syncopal episode. Per the patient he was in the shower when his vericose veins burst in his R foot, (which time to time happens), he was asking for help to stop the bleeding he couldn't do it himself in the quarters he was in. Initially, in the ED, pt refused IVF for his hypotension and elevated lactic acid. In the morning he consented and PIV placed. He was given ~1L fluids. IVF were not able to continue due to infiltrated IV and pt refusal for EJ. PO intake was encouraged. Methadone detox continued and ART Lactic acid level wnl on discharge PT refused to return to [facility] to complete detox and he does not want to stay at [facility]. He will sign AMA and wishes to [place] [facility] [place] [facility] [place] Condition: Stable - Instructions Diet, Activity, Other Instructions: Please return to the ED for any new, persistent, or worsening symptoms. Follow up with your PCP in 1 week Resume home medications as directed on home medication list Abstain from heroine use Drink plenty of water in the next few days Disposition: AGAINST MEDICAL ADVICE - Home Medications Comprehensive Discharge Medication List: Ambulatory Orders Darunavir Ethanolate [Prezista -] 800 mg PO DAILY 05/11/17 Emtricitabine/Tenofovir (Tdf) [Truvada 200 mg-300 mg Tablet] 1 each PO DAILY 08/15 Esomeprazole Magnesium 40 mg PO BID 05/11/17 Ritonavir [Norvir -] 100 mg PO DAILY 05/11/17 Simvastatin [Zocor -] 20 mg PO DAILY 05/11/17 Problem List - Problems (1) Hypotension Code(s): I95.9 - HYPOTENSION, UNSPECIFIED (2) Opioid dependence with withdrawal Code(s): F11.23 - OPIOID DEPENDENCE WITH WITHDRAWAL (3) BPH (benign prostatic hyperplasia) Code(s): N40.0 - BENIGN PROSTATIC HYPERPLASIA WITHOUT LOWER URINRY TRACT SYMP Qualifiers: Lower urinary tract symptom presence: symptoms present Lower urinary tract symptom detail: post-void dribbling Qualified Code(s): N40.1 - Benign prostatic hyperplasia with lower urinary tract symptoms; R35.0 - Frequency of micturition (4) GERD (gastroesophageal reflux disease) Code(s): K21.9 - GASTRO-ESOPHAGEAL REFLUX DISEASE WITHOUT ESOPHAGITIS Qualifiers: Esophagitis presence: without esophagitis Qualified Code(s): K21.9 - Gastro-esophageal reflux disease without esophagitis (5) HIV (human immunodeficiency virus infection) Code(s): B20 - HUMAN IMMUNODEFICIENCY VIRUS [HIV] DISEASE (6) Hyperlipidemia Code(s): E78.5 - HYPERLIPIDEMIA, UNSPECIFIED Qualifiers: Hyperlipidemia type: pure hypercholesterolemia Qualified Code(s): E78.00 - Pure hypercholesterolemia, unspecified; E78.0 - Pure hypercholesterolemia (7) Hypertension Code(s): I10 - ESSENTIAL (PRIMARY) HYPERTENSION Qualifiers: Hypertension type: essential hypertension Qualified Code(s): I10 - Essential (primary) hypertension (8) Depression (emotion) Code(s): F32.9 - MAJOR DEPRESSIVE DISORDER, SINGLE EPISODE, UNSPECIFIED Qualifiers: Depression Type: dysthymia Qualified Code(s): F34.1 - Dysthymic disorder (9) Elevated lactic acid level Code(s): R79.89 - OTHER SPECIFIED ABNORMAL FINDINGS OF BLOOD CHEMISTRY This patient is new to me today: No Emergency Visit: Yes ED Registration Date: 05/12/17 Care time: The patient presented to the Emergency Department on the above date and was hospitalized for further evaluation of their emergent condition. Critical Care patient: No - Discharge Referral Referred to [facility] No
[2017-05-13] MEDS ORDERED: PANTOPRAZOLE 40 MG TABLET (FP) PO ONE ×2 (12:48→17:00)
--- NOTE | 2017-05-13 13:20 | EKG ---
Test Reason : Blood Pressure : / mmHG Vent. Rate : 085 BPM Atrial Rate : 085 BPM P-R Int : 150 ms QRS Dur : 090 ms QT Int : 370 ms P-R-T Axes : 039 014 017 degrees QTc Int : 440 ms SINUS RHYTHM WITH OCCASIONAL PREMATURE VENTRICULAR COMPLEXES OTHERWISE NORMAL ECG WHEN COMPARED WITH ECG OF 12-MAY-2017 02:00, PREMATURE VENTRICULAR COMPLEXES ARE NOW PRESENT Confirmed by TAYLOR SEYMOUR MD ([id number]) on 05/13/2017 1:20:21 PM Referred By: Confirmed By:TAYLOR SEYMOUR MD
[2017-05-13] MEDS ORDERED: TAMSULOSIN HCL 0.4 MG CAP.ER.24H (FP) PO ONE (17:25)
[2017-05-13] MEDS: diazePAM 5 MG TABLET PO PRN (18:20)
[2017-05-13] MEDS: ATORVASTATIN CA 10 MG TABLET (FP) PO SCH (21:28)
[2017-05-13] MEDS: PANTOPRAZOLE 40 MG TABLET (FP) PO SCH (21:29)
[2017-05-14] MEDS: diazePAM 5 MG TABLET PO PRN ×3 (01:02→22:28)
[2017-05-14] MEDS ORDERED: PT OWN MED DRAWER 7, Y5N ONE (09:05)
[2017-05-14] MEDS: PANTOPRAZOLE 40 MG TABLET (FP) PO SCH ×2 (09:09→22:28)
[2017-05-14] MEDS: TAMSULOSIN HCL 0.4 MG CAP.ER.24H (FP) PO SCH (09:09)
[2017-05-14] MEDS: EMTRICITABINE 200MG/TENOFOVIR 300MG PO SCH (09:11)
[2017-05-14] MEDS: RITONAVIR 100 MG TABLET PO SCH (09:11)
[2017-05-14] MEDS: DARUNAVIR ETHANOLATE 800 MG TAB PO SCH (09:11)
[2017-05-14] MEDS ORDERED: METHADONE HCL 10 MG TABLET ONE (09:17)
[2017-05-14] MEDS ORDERED: METHADONE HCL 10 MG TABLET PO ONE (10:00)
--- NOTE | 2017-05-14 10:46 | PN ---
Physical Exam: SUBJECTIVE: Patient seen and examined. He has no active complaints today. The numbness in his LUE is improving OBJECTIVE: Vital Signs Period Temp Pulse Resp BP Sys/Pham Pulse Ox Last 24 Hr 98.4 F-98.8 F 68-83 20-20 98-100/60-62 96 PE Neuro: alert, awake, cn 2-12intact Pulm: CTAB CV: s1 s2 rrr no mrg Abd: s nt nd +bs Ext: R foot lesion , RLE skin changes Active Medications Generic Name Dose Route Start Last Admin Trade Name Freq PRN Reason Stop Dose Admin Atorvastatin Calcium 10 mg 05/12/17 22:00 05/13/17 21:28 Lipitor - PO 10 mg HS MELQUIADES Administration Darunavir 800 mg 05/12/17 12:00 05/14/17 09:11 Prezista - PO 800 mg DAILY MELQUIADES Administration Diazepam 10 mg 05/12/17 18:02 05/14/17 01:02 Valium - PO 05/15/17 18:01 10 mg Q4H PRN Administration WITHDRAWAL(CONT SUBST) Emtricitabine/Tenofovir 1 tab 05/12/17 12:00 05/14/17 09:11 Truvada PO 1 tab DAILY MELQUIADES Administration Sodium Chloride 1,000 mls @ 100 mls/hr 05/12/17 12:00 05/13/17 12:00 Normal Saline - IV Not Given ASDIR MELQUIADES Methadone HCl 10 mg 05/16/17 10:00 Dolophine - PO 05/16/17 10:01 ONCE ONE Methadone HCl 15 mg 05/15/17 10:00 Dolophine - PO 05/15/17 10:01 ONCE ONE Methadone HCl 5 mg 05/17/17 06:00 Dolophine - PO 05/17/17 06:01 ONCE@0600 ONE Pantoprazole Sodium 40 mg 05/13/17 22:00 05/14/17 09:09 Protonix - PO 40 mg BID MELQUIADES Administration Ritonavir 100 mg 05/12/17 12:00 05/14/17 09:11 Norvir - PO 100 mg DAILY MELQUIADES Administration Tamsulosin HCl 0.4 mg 05/14/17 08:30 05/14/17 09:09 Flomax - PO 0.4 mg DAILY@0830 MELQUIADES Administration Assessment: 66 year old male admitted with hypotension and elevated lactic acid level Plan: 1. Substance abuse - Continue methadone detox 3 days remaining 2. Hypotension - Resolved 3. Elevated lactic acid - Resolved 4. HIV - Continue HIV meds 5. R foot wound - Continue daily wound care 6. BPH - Daily flomax 7. HLD - Statin HS Dispo: - Transfer to med surg Problem List - Problems (1) Hypotension Code(s): I95.9 - HYPOTENSION, UNSPECIFIED (2) Opioid dependence with withdrawal Code(s): F11.23 - OPIOID DEPENDENCE WITH WITHDRAWAL (3) BPH (benign prostatic hyperplasia) Code(s): N40.0 - BENIGN PROSTATIC HYPERPLASIA WITHOUT LOWER URINRY TRACT SYMP Qualifiers: Lower urinary tract symptom presence: symptoms present Lower urinary tract symptom detail: post-void dribbling Qualified Code(s): N40.1 - Benign prostatic hyperplasia with lower urinary tract symptoms; R35.0 - Frequency of micturition (4) GERD (gastroesophageal reflux disease) Code(s): K21.9 - GASTRO-ESOPHAGEAL REFLUX DISEASE WITHOUT ESOPHAGITIS Qualifiers: Esophagitis presence: without esophagitis Qualified Code(s): K21.9 - Gastro-esophageal reflux disease without esophagitis (5) HIV (human immunodeficiency virus infection) Code(s): B20 - HUMAN IMMUNODEFICIENCY VIRUS [HIV] DISEASE (6) Hyperlipidemia Code(s): E78.5 - HYPERLIPIDEMIA, UNSPECIFIED Qualifiers: Hyperlipidemia type: pure hypercholesterolemia Qualified Code(s): E78.00 - Pure hypercholesterolemia, unspecified; E78.0 - Pure hypercholesterolemia (7) Hypertension Code(s): I10 - ESSENTIAL (PRIMARY) HYPERTENSION Qualifiers: Hypertension type: essential hypertension Qualified Code(s): I10 - Essential (primary) hypertension (8) Depression (emotion) Code(s): F32.9 - MAJOR DEPRESSIVE DISORDER, SINGLE EPISODE, UNSPECIFIED Qualifiers: Depression Type: dysthymia Qualified Code(s): F34.1 - Dysthymic disorder (9) Elevated lactic acid level Code(s): R79.89 - OTHER SPECIFIED ABNORMAL FINDINGS OF BLOOD CHEMISTRY Visit type - Emergency Visit Emergency Visit: Yes ED Registration Date: 05/13/17 Care time: The patient presented to the Emergency Department on the above date and was hospitalized for further evaluation of their emergent condition. - New Patient This patient is new to me today: No - Critical Care Critical Care patient: No
[2017-05-14] MEDS: SODIUM CHLORIDE 1,000 ML IV SCH (18:19)
[2017-05-14] MEDS ORDERED: DOCUSATE SODIUM 100 MG CAPSULE (FP) PO PRN (19:37)
[2017-05-14] MEDS: ATORVASTATIN CA 10 MG TABLET (FP) PO SCH (22:28)
[2017-05-15] MEDS: diazePAM 5 MG TABLET PO PRN ×2 (05:43→11:30)
[2017-05-15] MEDS ORDERED: ACETAMINOPHEN 500 MG TABLET (FP) PO PRN (06:23)
[2017-05-15] MEDS ORDERED: PT OWN MED DRAWER 7, Y5N ONE (09:51)
[2017-05-15] MEDS: TAMSULOSIN HCL 0.4 MG CAP.ER.24H (FP) PO SCH (09:55)
[2017-05-15] MEDS: PANTOPRAZOLE 40 MG TABLET (FP) PO SCH (09:55)
[2017-05-15] MEDS: RITONAVIR 100 MG TABLET PO SCH (09:57)
[2017-05-15] MEDS: DARUNAVIR ETHANOLATE 800 MG TAB PO SCH (09:58)
[2017-05-15] MEDS: EMTRICITABINE 200MG/TENOFOVIR 300MG PO SCH (09:58)
[2017-05-15] MEDS ORDERED: METHADONE HCL 5 MG TABLET PO ONE (10:00)
--- NOTE | 2017-05-15 10:52 | PN ---
Physical Exam: SUBJECTIVE: Patient seen and examined. He became dizzy and sob after going to the bathroom. He did not have a BM yet. 2L NC placed Events: - pain overnight relieved with tylenol - No bM OBJECTIVE: Vital Signs Period Temp Pulse Resp BP Sys/Pham Pulse Ox Last 24 Hr 98.4 F-98.9 F 79-95 16-18 90-107/54-62 96 PE Neuro: alert, awake, cn 2-12intact Pulm: CTAB, +NC no couch, crackles, wheezing appreciated CV: s1 s2 rrr no mrg Abd: s nt nd +bs Ext: R foot lesion dried, RLE skin changes Active Medications Generic Name Dose Route Start Last Admin Trade Name Freq PRN Reason Stop Dose Admin Acetaminophen 500 mg 05/15/17 06:23 05/15/17 09:55 Tylenol - PO 500 mg Q6H PRN Administration FEVER OR PAIN Atorvastatin Calcium 10 mg 05/12/17 22:00 05/14/17 22:28 Lipitor - PO 10 mg HS MELQUIADES Administration Darunavir 800 mg 05/12/17 12:00 05/15/17 09:58 Prezista - PO 800 mg DAILY MELQUIADES Administration Diazepam 10 mg 05/12/17 18:02 05/15/17 05:43 Valium - PO 05/15/17 18:01 10 mg Q4H PRN Administration WITHDRAWAL(CONT SUBST) Docusate Sodium 100 mg 05/14/17 19:37 Colace - PO Q8H PRN CONSTIPATION Emtricitabine/Tenofovir 1 tab 05/12/17 12:00 05/15/17 09:58 Truvada PO 1 tab DAILY MELQUIADES Administration Sodium Chloride 1,000 mls @ 100 mls/hr 05/12/17 12:00 05/14/17 18:19 Normal Saline - IV Not Given ASDIR MELQUIADES Methadone HCl 10 mg 05/16/17 10:00 Dolophine - PO 05/16/17 10:01 ONCE ONE Methadone HCl 5 mg 05/17/17 06:00 Dolophine - PO 05/17/17 06:01 ONCE@0600 ONE Pantoprazole Sodium 40 mg 05/13/17 22:00 05/15/17 09:55 Protonix - PO 40 mg BID MELQUIADES Administration Ritonavir 100 mg 05/12/17 12:00 05/15/17 09:57 Norvir - PO 100 mg DAILY MELQUIADES Administration Tamsulosin HCl 0.4 mg 05/14/17 08:30 05/15/17 09:55 Flomax - PO 0.4 mg DAILY@0830 MELQUIADES Administration Assessment: 66 year old male admitted with hypotension and elevated lactic acid level Plan: 1. Dizziness/sob - Check orthostatics - CBC, CMP now - Consider CXR if resp status worsens 2. Constipation - MOM x1 - Miralax daily 3. Substance abuse - Continue methadone detox 2 days remaining 4. Hypotension - Blood pressure stable 5. Elevated lactic acid - Resolved 6. HIV - Continue HIV meds 7. R foot wound - Continue daily wound care 8. BPH - Daily flomax 9. HLD - Statin HS Dispo: - Transfer to med surg Problem List - Problems (1) Hypotension Code(s): I95.9 - HYPOTENSION, UNSPECIFIED (2) Opioid dependence with withdrawal Code(s): F11.23 - OPIOID DEPENDENCE WITH WITHDRAWAL (3) BPH (benign prostatic hyperplasia) Code(s): N40.0 - BENIGN PROSTATIC HYPERPLASIA WITHOUT LOWER URINRY TRACT SYMP Qualifiers: Lower urinary tract symptom presence: symptoms present Lower urinary tract symptom detail: post-void dribbling Qualified Code(s): N40.1 - Benign prostatic hyperplasia with lower urinary tract symptoms; R35.0 - Frequency of micturition (4) GERD (gastroesophageal reflux disease) Code(s): K21.9 - GASTRO-ESOPHAGEAL REFLUX DISEASE WITHOUT ESOPHAGITIS Qualifiers: Esophagitis presence: without esophagitis Qualified Code(s): K21.9 - Gastro-esophageal reflux disease without esophagitis (5) HIV (human immunodeficiency virus infection) Code(s): B20 - HUMAN IMMUNODEFICIENCY VIRUS [HIV] DISEASE (6) Hyperlipidemia Code(s): E78.5 - HYPERLIPIDEMIA, UNSPECIFIED Qualifiers: Hyperlipidemia type: pure hypercholesterolemia Qualified Code(s): E78.00 - Pure hypercholesterolemia, unspecified; E78.0 - Pure hypercholesterolemia (7) Hypertension Code(s): I10 - ESSENTIAL (PRIMARY) HYPERTENSION Qualifiers: Hypertension type: essential hypertension Qualified Code(s): I10 - Essential (primary) hypertension (8) Depression (emotion) Code(s): F32.9 - MAJOR DEPRESSIVE DISORDER, SINGLE EPISODE, UNSPECIFIED Qualifiers: Depression Type: dysthymia Qualified Code(s): F34.1 - Dysthymic disorder (9) Elevated lactic acid level Code(s): R79.89 - OTHER SPECIFIED ABNORMAL FINDINGS OF BLOOD CHEMISTRY Visit type - Emergency Visit Emergency Visit: Yes ED Registration Date: 05/13/17 Care time: The patient presented to the Emergency Department on the above date and was hospitalized for further evaluation of their emergent condition. - New Patient This patient is new to me today: No - Critical Care Critical Care patient: No
[2017-05-15] MEDS ORDERED: MAGNESIUM HYDROX 2400MG/30ML ORAL SUSPENSION 30 ML CUP PO ONE (10:53)
[2017-05-15 13:45] LABS: EOSINOPHIL 2.9 % (0-4.5); MCH 28.2 pg (25.7-33.7); MCHC 32.8 g/dl (32.0-35.9); MEAN CELL VOLUME 85.9 fl (80-96); MEAN PLT VOLUME 7.3 fl (7.5-11.1); NEUTROPHILS 58.6 % (42.8-82.8); PLATELET COUNT 209 K/MM3 (134-434); RDW 15.9 % (11.9-15.9)
[2017-05-15 14:16] LABS: ALBUMIN 3.1 g/dl (3.4-5.0); ANION GAP 9 (8-16); BILIRUBIN,TOTAL 0.2 mg/dL (0.2-1.0); CALCIUM 8.7 mg/dL (8.5-10.1); CO2 29 mmol/L (21-32); CREATININE 1.4 mg/dL (0.7-1.3); GLUCOSE,RANDOM 106 mg/dL (74-106); SGPT/ALT 17 U/L (12-78); TOT PROT 6.3 g/dl (6.4-8.2)
[2017-05-15 14:17] LABS: ALK PHOS 56 U/L (45-117)
[2017-05-15 14:23] LABS: SGOT/AST 23 U/L (15-37)
[2017-05-15 14:25] LABS: ANISOCYTOSIS 1+; HYPOCHROMIA 2+; MICROCYTOSIS 1+; PLATELET COMMENT2 NO CLOTTING DETECTED; PLATELET ESTIMATE ADEQUATE (NORMAL); POIKILOCYTOSIS 1+; POLYCHROMASIA 1+
[2017-05-15] MEDS: ATORVASTATIN CA 10 MG TABLET (FP) PO SCH (21:06)
[2017-05-16] MEDS ORDERED: METHADONE HCL 10 MG TABLET PO ONE (10:00)
[2017-05-16] MEDS: TAMSULOSIN HCL 0.4 MG CAP.ER.24H (FP) PO SCH (10:11)
[2017-05-16] MEDS: PANTOPRAZOLE 40 MG TABLET (FP) PO SCH (10:11)
[2017-05-16] MEDS: POLYETHYLENE GLYCOL 3350 119 GM BTL PO SCH (10:12)
[2017-05-16] MEDS: DARUNAVIR ETHANOLATE 800 MG TAB PO SCH (10:13)
[2017-05-16] MEDS: EMTRICITABINE 200MG/TENOFOVIR 300MG PO SCH (10:13)
[2017-05-16] MEDS: RITONAVIR 100 MG TABLET PO SCH (10:13)
--- NOTE | 2017-05-16 10:29 | PN ---
Physical Exam: SUBJECTIVE: Patient seen and examined. He denies sob or dizziness at this time. He said his leg was burning so they stopped it. Discussed importance of transfusion he will finish today if needed. Events: - Transfusion discontinued, c/o burning, no allergic reaction OBJECTIVE: Vital Signs Period Temp Pulse Resp BP Sys/Pham Pulse Ox Last 24 Hr 98.3 F-98.6 F 78-82 16-18 94-104/52-64 96 PE Neuro: alert, awake, cn 2-12intact Pulm: CTAB CV: s1 s2 rrr no mrg Abd: s nt nd +bs Ext: R foot lesion dried, RLE skin changes, left foot PIV Laboratory Results - last 24 hr 05/15/17 05/15/17 05/15/17 12:46 12:46 16:00 WBC 4.0 D RBC 2.33 L D Hgb 6.6 L* D Hct 20.0 L D MCV 85.9 MCH 28.2 MCHC 32.8 RDW 15.9 Plt Count 209 MPV 7.3 L Neutrophils % 58.6 Lymphocytes % 28.8 Monocytes % 8.7 Eosinophils % 2.9 Basophils % 1.0 Hypochromia 2+ Platelet Estimate Adequate Platelet Comment No clotting detected Polychromasia 1+ Poikilocytosis 1+ Anisocytosis 1+ Microcytosis 1+ Sodium 140 Potassium 3.7 Chloride 102 Carbon Dioxide 29 Anion Gap 9 BUN 9 D Creatinine 1.4 H D Creat Clearance w eGFR 50.55 Random Glucose 106 D Calcium 8.7 Phosphorus 2.0 L Magnesium 2.0 Total Bilirubin 0.2 D AST 23 ALT 17 Alkaline Phosphatase 56 Total Protein 6.3 L Albumin 3.1 L Blood Type A NEGATIVE Antibody Screen Negative Crossmatch See Detail Active Medications Generic Name Dose Route Start Last Admin Trade Name Freq PRN Reason Stop Dose Admin Acetaminophen 500 mg 05/15/17 06:23 05/15/17 09:55 Tylenol - PO 500 mg Q6H PRN Administration FEVER OR PAIN Atorvastatin Calcium 10 mg 05/12/17 22:00 05/15/17 21:06 Lipitor - PO 10 mg HS MELQUIADES Administration Darunavir 800 mg 05/12/17 12:00 05/16/17 10:13 Prezista - PO 800 mg DAILY MELQUIADES Administration Emtricitabine/Tenofovir 1 tab 05/12/17 12:00 05/16/17 10:13 Truvada PO 1 tab DAILY MELQUIADES Administration Methadone HCl 5 mg 05/17/17 06:00 Dolophine - PO 05/17/17 06:01 ONCE@0600 ONE Pantoprazole Sodium 40 mg 05/16/17 10:00 05/16/17 10:11 Protonix - PO 40 mg DAILY MELQUIADES Administration Polyethylene Glycol 17 gm 05/16/17 10:00 05/16/17 10:12 Miralax (For Daily Use) - PO 17 gm DAILY MELQUIADES Administration Ritonavir 100 mg 05/12/17 12:00 05/16/17 10:13 Norvir - PO 100 mg DAILY MELQUIADES Administration Tamsulosin HCl 0.4 mg 05/14/17 08:30 05/16/17 10:11 Flomax - PO 0.4 mg DAILY@0830 MELQUIADES Administration Assessment: 66 year old male admitted with hypotension and elevated lactic acid level Plan: 1. Acute blood loss anemia - s/p ~150cc pack cells, transfused - Recheck AM CBC and transfuse for hgb < 7 2. Constipation - x1 dose lactulose 20mg - Dulcolax po x1 - Miralax daily 3. Substance abuse - Continue methadone detox, final day tomorrow 4. Hypotension - Appears to be at baseline 5. Elevated lactic acid - Resolved 6. HIV - Continue HIV meds 7. R foot wound - Continue daily wound care 8. BPH - Daily flomax 9. HLD - Statin HS Dispo: - DC home tomorrow pending cbc Problem List - Problems (1) Hypotension Code(s): I95.9 - HYPOTENSION, UNSPECIFIED (2) Opioid dependence with withdrawal Code(s): F11.23 - OPIOID DEPENDENCE WITH WITHDRAWAL (3) BPH (benign prostatic hyperplasia) Code(s): N40.0 - BENIGN PROSTATIC HYPERPLASIA WITHOUT LOWER URINRY TRACT SYMP Qualifiers: Lower urinary tract symptom presence: symptoms present Lower urinary tract symptom detail: post-void dribbling Qualified Code(s): N40.1 - Benign prostatic hyperplasia with lower urinary tract symptoms; R35.0 - Frequency of micturition (4) GERD (gastroesophageal reflux disease) Code(s): K21.9 - GASTRO-ESOPHAGEAL REFLUX DISEASE WITHOUT ESOPHAGITIS Qualifiers: Esophagitis presence: without esophagitis Qualified Code(s): K21.9 - Gastro-esophageal reflux disease without esophagitis (5) HIV (human immunodeficiency virus infection) Code(s): B20 - HUMAN IMMUNODEFICIENCY VIRUS [HIV] DISEASE (6) Hyperlipidemia Code(s): E78.5 - HYPERLIPIDEMIA, UNSPECIFIED Qualifiers: Hyperlipidemia type: pure hypercholesterolemia Qualified Code(s): E78.00 - Pure hypercholesterolemia, unspecified; E78.0 - Pure hypercholesterolemia (7) Hypertension Code(s): I10 - ESSENTIAL (PRIMARY) HYPERTENSION Qualifiers: Hypertension type: essential hypertension Qualified Code(s): I10 - Essential (primary) hypertension (8) Depression (emotion) Code(s): F32.9 - MAJOR DEPRESSIVE DISORDER, SINGLE EPISODE, UNSPECIFIED Qualifiers: Depression Type: dysthymia Qualified Code(s): F34.1 - Dysthymic disorder (9) Elevated lactic acid level Code(s): R79.89 - OTHER SPECIFIED ABNORMAL FINDINGS OF BLOOD CHEMISTRY Visit type - Emergency Visit Emergency Visit: Yes ED Registration Date: 05/13/17 Care time: The patient presented to the Emergency Department on the above date and was hospitalized for further evaluation of their emergent condition. - New Patient This patient is new to me today: No - Critical Care Critical Care patient: No
[2017-05-16] MEDS ORDERED: BISACODYL 5 MG TABLET.DR (FP) PO ONE (10:40)
[2017-05-16] MEDS ORDERED: LACTULOSE 20 GM/30 ML UDC (FOR ORAL USE ONLY) PO ONE (10:40)
[2017-05-16 10:57] LABS: MCH 27.5 pg (25.7-33.7); MCHC 32.1 g/dl (32.0-35.9); MEAN CELL VOLUME 85.6 fl (80-96); MEAN PLT VOLUME 7.1 fl (7.5-11.1); PLATELET COUNT 227 K/MM3 (134-434); WHITE BLOOD COUNT 4.5 K/mm3 (4.0-10.0)
[2017-05-16] MEDS: ATORVASTATIN CA 10 MG TABLET (FP) PO SCH (22:18)
[2017-05-17] MEDS ORDERED: METHADONE HCL 5 MG TABLET PO ONE (06:00)
[2017-05-17] MEDS ORDERED: PT OWN MED DRAWER 7, Y5N ONE (08:43)
[2017-05-17] MEDS: TAMSULOSIN HCL 0.4 MG CAP.ER.24H (FP) PO SCH (08:55)
[2017-05-17] MEDS: POLYETHYLENE GLYCOL 3350 119 GM BTL PO SCH (08:59)
[2017-05-17] MEDS: PANTOPRAZOLE 40 MG TABLET (FP) PO SCH (09:00)
[2017-05-17] MEDS: DARUNAVIR ETHANOLATE 800 MG TAB PO SCH (09:00)
[2017-05-17] MEDS: RITONAVIR 100 MG TABLET PO SCH (09:00)
[2017-05-17] MEDS: EMTRICITABINE 200MG/TENOFOVIR 300MG PO SCH (09:00)
[2017-05-17 09:23] LABS: MCH 27.8 pg (25.7-33.7); MEAN CELL VOLUME 84.2 fl (80-96); MEAN PLT VOLUME 6.3 fl (7.5-11.1); PLATELET COUNT 225 K/MM3 (134-434); RDW 15.2 % (11.9-15.9); WHITE BLOOD COUNT 4.4 K/mm3 (4.0-10.0)
[2017-05-17 09:56] VITALS: BP 101/64; PULSE 74; TEMP 97.9
--- NOTE | 2017-05-17 11:05 | DS ---
Physical Examination Vital Signs: Vital Signs Temperature 97.9 F 05/17/17 09:55 Pulse Rate 74 05/17/17 09:55 Respiratory Rate 18 05/17/17 09:55 Blood Pressure 101/64 05/17/17 09:55 O2 Sat by Pulse Oximetry (%) 97 05/17/17 09:53 Labs: CBC, BMP 05/17/17 09:10 05/15/17 12:46 Discharge Summary Reason For Visit: HYPOTENSION Current Active Problems Elevated lactic acid level (Acute) Hypotension (Acute) Hospital Course: Patient denies any dizziness, shortness of breath, chest pain. He has refused more blood He states he would like to go home Condition: Stable - Instructions Diet, Activity, Other Instructions: Please return to the ED for any new, persistent, or worsening symptoms. Follow up with your PCP in 1 week Resume home medications as directed on home medication list Abstain from heroine use Drink plenty of water in the next few days Referrals: Clayton Olmedo MD [Staff Physician] - (Please follow-up with your pcp within 1-2 days to have your hemoglobin rechecked. You will also need to have an anemia workup as an outpatient) Price Brian MD [Staff Physician] - Brigette Oakley NP [Nurse Practitioner] - Rolly De La O MD [Staff Physician] - Disposition: HOME - Home Medications Comprehensive Discharge Medication List: Ambulatory Orders Darunavir Ethanolate [Prezista -] 800 mg PO DAILY 05/11/17 Emtricitabine/Tenofovir (Tdf) [Truvada 200 mg-300 mg Tablet] 1 each PO DAILY 08/15 Esomeprazole Magnesium 40 mg PO BID 05/11/17 Ritonavir [Norvir -] 100 mg PO DAILY 05/11/17 Simvastatin [Zocor -] 20 mg PO DAILY 05/11/17 Polyethylene Glycol 3350 [Miralax 119 gm Btl -] 17 gm PO DAILY bottle 05/17/17 Tamsulosin HCl [Flomax -] 0.4 mg PO DAILY@0830 #30 tab 05/17/17 - Discharge Referral [facility]erred to [facility] No
== END 2017-05-17 12:24 | disposition home or self-care (01) | DRG 315 ==
LOC: JER 01:38 → JERBED 09:32 → J4S 13:31 → OBSVTOIN 05-13 17:45
PROVIDERS: ADMIT Internal Medicine; ATTEND Registered Nurse
PROC: 30233N1 Transfusion of Nonautologous Red Blood Cells into Peripheral Vein, Percutaneous Approach (ICD-10-PCS; principal; 2017-05-15)
DX: I95.9 Hypotension, unspecified (principal); F11.20 Opioid dependence, uncomplicated; D62 Acute posthemorrhagic anemia; F32.9 Major depressive disorder, single episode, unspecified; K21.9 Gastro-esophageal reflux disease without esophagitis; N40.0 Benign prostatic hyperplasia without lower urinary tract symptoms; I10 Essential (primary) hypertension; E78.5 Hyperlipidemia, unspecified; H81.10 Benign paroxysmal vertigo, unspecified ear; R79.89 Other specified abnormal findings of blood chemistry; K59.00 Constipation, unspecified; I86.8 Varicose veins of other specified sites; Z21 Asymptomatic human immunodeficiency virus [HIV] infection status
CPT/HCPCS: 36415; 36430; 71010-TC; 80053; 81003; 82553; 83605; 83690; 83735; 83880; 84100; 84132; 84484; 85025; 85027; 85610; 86803; 86850; 86900; 86901; 86922; 87040; 87086; 87350; 87522; 93005; 93010; 99285-25; G0378; P9038; P9058

== ENCOUNTER 2017-05-17 12:51 | Inpatient (IN) | payer MEDICARE, OTHER ==
--- NOTE | 2017-05-17 13:35 | PDOC ---
History of Present Illness - General Chief Complaint: Lightheaded Stated Complaint: DIZZY (RAPID RESPONSE) Time Seen by Provider: 05/17/17 13:06 Past History - Past Medical History Allergies/Adverse Reactions: Allergies Allergy/AdvReac Type Severity Reaction Status Date / Time No Known Allergies Allergy Verified 05/11/17 22:18 Home Medications: Ambulatory Orders Darunavir Ethanolate [Prezista -] 800 mg PO DAILY 05/11/17 Emtricitabine/Tenofovir (Tdf) [Truvada 200 mg-300 mg Tablet] 1 each PO DAILY 08/15 Esomeprazole Magnesium 40 mg PO BID 05/11/17 Ritonavir [Norvir -] 100 mg PO DAILY 05/11/17 Simvastatin [Zocor -] 20 mg PO DAILY 05/11/17 Polyethylene Glycol 3350 [Miralax 119 gm Btl -] 17 gm PO DAILY bottle 05/17/17 Tamsulosin HCl [Flomax -] 0.4 mg PO DAILY@0830 #30 tab 05/17/17 Anemia: No Asthma: No Cancer: No Cardiac Disorders: No CVA: No COPD: No CHF: No Dementia: No Diabetes: No GI Disorders: Yes Disorders: Yes HTN: Yes Hypercholesterolemia: Yes HIV: Yes Kidney Stones: No Liver Disease: No Seizures: No Thyroid Disease: No - Surgical History Abdominal Surgery: No Appendectomy: No Cardiac Surgery: No Cholecystectomy: No Lung Surgery: No Neurologic Surgery: No Orthopedic Surgery: Yes (hips bilaterally 1988) - Reproductive History Testicular Surgery: No - Suicide/Smoking/Psychosocial Hx Smoking History: Never smoked Have you smoked in the past 12 months: No Hx Alcohol Use: Yes Drug/Substance Use Hx: Yes Substance Use Type: Alcohol, Cocaine, Heroin Hx Substance Use Treatment: Yes (01/2017 [facility]) *Physical Exam - Vital Signs Last Vital Signs Temp Pulse Resp BP Pulse Ox 98.4 F 92 H 20 73/48 97 05/17/17 13:03 05/17/17 13:17 05/17/17 13:03 05/17/17 13:17 05/17/17 13:03 ED Treatment Course - LABORATORY CBC & Chemistry Diagram: 05/17/17 14:45 05/17/17 14:10 *DC/Admit/Observation/Transfer Diagnosis at time of Disposition: Opioid abuse, Orthostatic hypotension Anemia Qualifiers: Anemia type: other cause Other causes of anemia: acute posthemorrhagic Qualified Code(s): D62 - Acute posthemorrhagic anemia - Discharge Dispostion Condition at time of disposition: Guarded Admit: Yes
[2017-05-17] MEDS ORDERED: SODIUM CHLORIDE 500 ML IV STA (13:39)
[2017-05-17 14:57] LABS: ANION GAP 5 (8-16); BILIRUBIN,TOTAL 0.3 mg/dL (0.2-1.0); CALCIUM 8.7 mg/dL (8.5-10.1); CO2 27 mmol/L (21-32); CREATININE 1.3 mg/dL (0.7-1.3); GLUCOSE,RANDOM 115 mg/dL (74-106); SGOT/AST 22 U/L (15-37); SGPT/ALT 17 U/L (12-78); TOT PROT 6.5 g/dl (6.4-8.2)
[2017-05-17 14:59] LABS: ALK PHOS 56 U/L (45-117); CPK 108 IU/L (39-308); TROPONIN I < 0.02 ng/ml (0.00-0.05)
[2017-05-17 14:59] LABS: BASOPHIL 0.7 % (0-2.0); EOSINOPHIL 2.5 % (0-4.5); MCH 27.3 pg (25.7-33.7); MCHC 32.3 g/dl (32.0-35.9); MEAN CELL VOLUME 84.5 fl (80-96); MEAN PLT VOLUME 6.7 fl (7.5-11.1); NEUTROPHILS 58.5 % (42.8-82.8); PLATELET COUNT 247 K/MM3 (134-434); RDW 15.3 % (11.9-15.9); WHITE BLOOD COUNT 5.2 K/mm3 (4.0-10.0)
[2017-05-17 15:14] LABS: INR 1.05 (0.82-1.09); PROTHROMBIN TIME (PATIENT) 11.6 SEC (9.98-11.88)
[2017-05-17] MEDS ORDERED: METHADONE HCL 10 MG TABLET (FOR DETOX USE ONLY) PO ONE (16:52)
[2017-05-17] MEDS ORDERED: METHADONE HCL 10 MG TABLET ONE (17:02)
--- NOTE | 2017-05-17 21:08 | HP ---
CHIEF COMPLAINT: near syncope PCP: @[facility] HISTORY OF PRESENT ILLNESS: This is a 66 year old male with a past medical history of HIV, HTN, HLD, GERD, depression, BPH who is s/p near syncope in the lobby. Pt was admitted here from 05/13-05/17 with acute blood loss anemia s/p varicose vein rupture. Pt states that he began to feel unwell and dizzy as he was walking to the exit. He states that he went to the bus stop to wait for the bus and continued to feel unwell despite resting and so he called his friend who advised him to return to the hospital. As per Mr. Rosario, he came back in the main entrance and informed the person at the information desk that he was feeling unwell, dizzy and as if he was going to pass out. He states he was put in a wheelchair and brought down to the ED. A rapid response had been called on the patient while he at the main entrance due to report of near syncope. On exam, pt is feeling well. Denies dizziness but states that he won't know until he stands and walks. ER course was notable for: (1) Hgb 7.9, 1uPRBC started Recent Travel: pt denies PAST MEDICAL HISTORY: HIV HTN HLD GERD depression BPH Social History: Smoking: quit 35 years ago Alcohol: couple of shots a couple times/week when out with friends Drugs: cocaine, heroin, completed opioid detox this morning Family History: mother in her 40s, unknown COD, h/o ETOH father in his 60s, unknown COD, h/o heroin and cocaine use, especially cocaine 2 sisters, both , one in fire and one likely OD 3 daughters, all healthy Allergies No Known Allergies Allergy (Verified 05/11/17 22:18) HOME MEDICATIONS: 3 Medication Instructions Recorded Darunavir Ethanolate [Prezista -] 800 mg PO DAILY 05/11/17 Emtricitabine/Tenofovir (Tdf) 1 each PO DAILY 05/11/17 [Truvada 200 mg-300 mg Tablet] Esomeprazole Magnesium 40 mg PO BID 05/11/17 Ritonavir [Norvir -] 100 mg PO DAILY 05/11/17 Simvastatin [Zocor -] 20 mg PO DAILY 05/11/17 Polyethylene Glycol 3350 [Miralax 17 gm PO DAILY bottle 05/17/17 119 gm Btl -] Tamsulosin HCl [Flomax -] 0.4 mg PO DAILY@0830 #30 tab 05/17/17 REVIEW OF SYSTEMS CONSTITUTIONAL: Present: generalized weakness, malaise Absent: fever, chills, diaphoresis, loss of appetite, weight change HEENT: Absent: rhinorrhea, nasal congestion, throat pain, throat swelling, difficulty swallowing, mouth swelling, ear pain, eye pain, visual changes CARDIOVASCULAR: Absent: chest pain, syncope, palpitations, irregular heart rate, lightheadedness , peripheral edema RESPIRATORY: Absent: cough, shortness of breath, dyspnea with exertion, orthopnea, wheezing, stridor, hemoptysis GASTROINTESTINAL: Absent: abdominal pain, abdominal distension, nausea, vomiting, diarrhea, constipation, melena, hematochezia GENITOURINARY: Absent: dysuria, frequency, urgency, hesitancy, hematuria, flank pain, genital pain MUSCULOSKELETAL: Absent: myalgia, arthralgia, joint swelling, back pain, neck pain SKIN: Absent: rash, itching, pallor HEMATOLOGIC/IMMUNOLOGIC: Absent: easy bleeding, easy bruising, lymphadenopathy, frequent infections ENDOCRINE: Absent: unexplained weight gain, unexplained weight loss, heat intolerance, cold intolerance NEUROLOGIC: Present: dizziness Absent: headache, focal weakness or paresthesias, unsteady gait, seizure, mental status changes, bladder or bowel incontinence PSYCHIATRIC: Absent: anxiety, depression, suicidal or homicidal ideation, hallucinations. PHYSICAL EXAMINATION Vital Signs - 24 hr 3 05/17/17 05/17/17 05/17/17 13:03 13:15 17:30 Temperature 98.4 F 98.2 F Pulse Rate 92 H 86 Pulse Rate [ Apical] Pulse Rate [ 85 Right side Sitting] Pulse Rate [ 104 H Right side Standing] Pulse Rate [ 87 Right side Supine] Respiratory 20 22 Rate Blood Pressure 73/48 Blood Pressure [Right Arm] 127/80 Blood Pressure 110/78 [Right side Sitting] Blood Pressure 91/63 [Right side Standing] Blood Pressure 115/58 [Right side Supine] O2 Sat by Pulse 97 100 Oximetry (%) 3 05/17/17 18:00 21:26 Temperature 98.1 F 98.1 F Pulse Rate Pulse Rate [ 80 84 Apical] Pulse Rate [ Right side Sitting] Pulse Rate [ Right side Standing] Pulse Rate [ Right side Supine] Respiratory 20 20 Rate Blood Pressure Blood Pressure 130/78 113/75 [Right Arm] Blood Pressure [Right side Sitting] Blood Pressure [Right side Standing] Blood Pressure [Right side Supine] O2 Sat by Pulse 100 100 Oximetry (%) GENERAL: Awake, alert, and fully oriented, in no acute distress. HEAD: Normal with no signs of trauma. EYES: Pupils equal, round and reactive to light, extraocular movements intact, sclera anicteric, conjunctiva clear. No lid lag. EARS, NOSE, THROAT: Ears normal, nares patent, oropharynx clear without exudates. Moist mucous membranes. NECK: Normal range of motion, supple without lymphadenopathy, JVD, or masses. LUNGS: Breath sounds equal, clear to auscultation bilaterally. No wheezes, and no crackles. No accessory muscle use. HEART: Regular rate and rhythm, normal S1 and S2 without murmur, rub or gallop. ABDOMEN: Soft, nontender, not distended, normoactive bowel sounds, no guarding, no rebound, no masses. No hepatomegaly or splenomegaly. MUSCULOSKELETAL: Normal range of motion at all joints. No bony deformities or tenderness. No CVA tenderness. UPPER EXTREMITIES: 2+ pulses, warm, well-perfused. No cyanosis. No clubbing. No peripheral edema. LOWER EXTREMITIES: 2+ pulses, warm, well-perfused. No calf tenderness. trace peripheral edema LLE, 1+ left, chronic vascular changes left lower leg. NEUROLOGICAL: Cranial nerves II-XII intact. Normal speech. Normal gait. PSYCHIATRIC: Cooperative. Good eye contact. Appropriate mood and affect. SKIN: Warm, dry, normal turgor, no rashes or lesions noted, normal capillary refill. Laboratory Results - last 24 hr 3 05/17/17 05/17/17 05/17/17 14:10 14:10 14:32 WBC RBC Hgb Hct MCV MCH MCHC RDW Plt Count MPV Neutrophils % Lymphocytes % Monocytes % Eosinophils % Basophils % PT with INR 11.60 INR 1.05 Sodium 138 Potassium 3.9 Chloride 106 Carbon Dioxide 27 Anion Gap 5 L BUN 9 Creatinine 1.3 Creat Clearance w eGFR 55.06 Random Glucose 115 H Calcium 8.7 Total Bilirubin 0.3 D AST 22 ALT 17 Alkaline Phosphatase 56 Creatine Kinase 108 Cancelled Troponin I < 0.02 Cancelled Total Protein 6.5 Albumin 3.0 L Blood Type Antibody Screen Crossmatch 3 05/17/17 05/17/17 14:32 14:45 WBC 5.2 RBC 2.91 L Hgb 7.9 L Hct 24.6 L MCV 84.5 MCH 27.3 MCHC 32.3 RDW 15.3 Plt Count 247 MPV 6.7 L Neutrophils % 58.5 Lymphocytes % 28.0 Monocytes % 10.3 H Eosinophils % 2.5 Basophils % 0.7 PT with INR INR Sodium Potassium Chloride Carbon Dioxide Anion Gap BUN Creatinine Creat Clearance w eGFR Random Glucose Calcium Total Bilirubin AST ALT Alkaline Phosphatase Creatine Kinase Troponin I Total Protein Albumin Blood Type A NEGATIVE Antibody Screen Negative Crossmatch See Detail ECG Normal sinus rhythm Vent rate 85, QTC 430 incomplete RBBB inverted T in lead III, aVF, flattened lead II ASSESSMENT/PLAN: 66yM with PMH HIV, HTN, HLD, GERD, BPH, depression who was recently admitted for acute blood loss anemia is now being readmitted for near syncope with continued anemia. Near syncope due to anemia - received 1uPRB - repeat h/h in am - if feeling better and h/h improved may be dc in am HTN - BP WNL off meds, cont to monitor HLD - cont lipitor HIV - cont aniviral regimen BPH - cont flomax GERD - cont nexium constipation - cont miralax DVT PPX - deferred, expected LOS <48h FEN - pt tolerating po fluids, no IVF - repeat BMP in am - low sodium diet as tolerated Dispo: Pt currently requires inpatient managment of his emergent condition but expected LOS is less than 2 midnights. Visit type - Emergency Visit Emergency Visit: Yes ED Registration Date: 05/17/17 Care time: The patient presented to the Emergency Department on the above date and was hospitalized for further evaluation of their emergent condition. - New Patient This patient is new to me today: Yes Date on this admission: 05/17/17 - Critical Care Critical Care patient: No
[2017-05-17] MEDS ORDERED: hydrOXYzine HCL 25 MG TABLET (FP) PO ONE (22:21)
[2017-05-17] MEDS: PANTOPRAZOLE 40 MG TABLET (FP) PO SCH (22:39)
[2017-05-17] MEDS: ATORVASTATIN CA 10 MG TABLET (FP) PO SCH (22:39)
[2017-05-17 22:54] VITALS: BMI 29.2
[2017-05-17] MEDS: hydrOXYzine HCL 25 MG TABLET (FP) PO PRN (23:44)
[2017-05-18] MEDS ORDERED: TAMSULOSIN HCL 0.4 MG CAP.ER.24H (FP) PO SCH (08:30)
[2017-05-18 08:32] LABS: MCH 27.9 pg (25.7-33.7); MCHC 33.7 g/dl (32.0-35.9); MEAN CELL VOLUME 82.7 fl (80-96); MEAN PLT VOLUME 6.6 fl (7.5-11.1); PLATELET COUNT 236 K/MM3 (134-434); WHITE BLOOD COUNT 4.2 K/mm3 (4.0-10.0)
[2017-05-18] MEDS ORDERED: PATIENT'S OWN MEDICATION (NON-FORMULARY) (Simvastatin 20 MG) PO SCH (10:00)
[2017-05-18] MEDS ORDERED: PT OWN MED DRAWER 7, Y5N ONE (10:05)
[2017-05-18] MEDS: PANTOPRAZOLE 40 MG TABLET (FP) PO SCH ×2 (10:07→21:22)
[2017-05-18] MEDS: POLYETHYLENE GLYCOL 3350 119 GM BTL PO SCH (10:08)
[2017-05-18] MEDS: hydrOXYzine HCL 25 MG TABLET (FP) PO PRN ×2 (10:08→23:46)
--- NOTE | 2017-05-18 11:23 | PN ---
Progress Note (short form) - Note Progress Note: Subjective: The patient was seen and examined at the bedside, he states "I want to be left alone". Denies any dizziness or shortness of breath. Spoke to patient's pcp office. Recent Hgb 02/2017 11. BPs run 110s/60s 1u PRBC ordered, patient reports feeling "tired". He denies any black stools Current Medications Generic Name Dose Route Start Last Admin Trade Name Freq PRN Reason Stop Dose Admin Atorvastatin Calcium 10 mg 05/17/17 22:00 05/17/17 22:39 Lipitor - PO 10 mg HS MELQUIADES Administration Darunavir 800 mg 05/18/17 10:00 Prezista - PO DAILY MELQUIADES Emtricitabine/Tenofovir 1 tab 05/18/17 10:00 Truvada PO DAILY MELQUIADES Hydroxyzine HCl 50 mg 05/17/17 22:22 05/18/17 10:08 Atarax - PO 50 mg HS PRN Administration INSOMNIA Pantoprazole Sodium 40 mg 05/17/17 22:00 05/18/17 10:07 Protonix - PO 40 mg BID MELQUIADES Administration Polyethylene Glycol 17 gm 05/18/17 10:00 05/18/17 10:08 Miralax (For Daily Use) - PO Not Given DAILY MELQUIADES Ritonavir 100 mg 05/18/17 10:00 Norvir - PO DAILY MELQUIADES Objective: Vital Signs Period Temp Pulse Resp BP Sys/Pham Pulse Ox Last 24 Hr 98.1 F-98.4 F 76-104 18-22 73-151/48-80 97-100 Physical Exam: Patient refused CBCD WBC 4.2 K/mm3 (4.0-10.0) 05/18/17 08:15 RBC 2.91 M/mm3 (4.00-5.60) L 05/18/17 08:15 Hgb 8.1 GM/dL (11.7-16.9) L 05/18/17 08:15 Hct 24.1 % (35.4-49) L 05/18/17 08:15 MCV 82.7 fl (80-96) 05/18/17 08:15 MCHC 33.7 g/dl (32.0-35.9) 05/18/17 08:15 RDW 16.0 % (11.9-15.9) H 05/18/17 08:15 Plt Count 236 K/MM3 (134-434) 05/18/17 08:15 MPV 6.6 fl (7.5-11.1) L 05/18/17 08:15 CMP Sodium 138 mmol/L (136-145) 05/17/17 14:10 Potassium 3.9 mmol/L (3.5-5.1) 05/17/17 14:10 Chloride 106 mmol/L (98-107) 05/17/17 14:10 Carbon Dioxide 27 mmol/L (21-32) 05/17/17 14:10 Anion Gap 5 (8-16) L 05/17/17 14:10 BUN 9 mg/dL (7-18) 05/17/17 14:10 Creatinine 1.3 mg/dL (0.7-1.3) 05/17/17 14:10 Creat Clearance w eGFR 55.06 (>60) 05/17/17 14:10 Random Glucose 115 mg/dL (74-106) H 05/17/17 14:10 Calcium 8.7 mg/dL (8.5-10.1) 05/17/17 14:10 Total Bilirubin 0.3 mg/dL (0.2-1.0) D 05/17/17 14:10 AST 22 U/L (15-37) 05/17/17 14:10 ALT 17 U/L (12-78) 05/17/17 14:10 Alkaline Phosphatase 56 U/L (45-117) 05/17/17 14:10 Total Protein 6.5 g/dl (6.4-8.2) 05/17/17 14:10 Albumin 3.0 g/dl (3.4-5.0) L 05/17/17 14:10 CARDIAC ENZYMES Creatine Kinase 108 IU/L (39-308) 05/17/17 14:10 Troponin I < 0.02 ng/ml (0.00-0.05) 05/17/17 14:10 Assessment: This is a 66 year old male with PMHx of HIV, hyperlipidemia, GERD, depression, BPH, who presented to the ED after feeling dizzy in the lobby (he was discharged from the hospital yesterday) Plan: 1) Symptomatic anemia - Patient's baseline Hgb ~11.9 (02/2017) - Will transfuse 1u PRBC, patient remains lethargic - Recheck Hgb after unit and discharge if increases appropriately and patient's lethargy improves - Denies black stools 2) Hypotension - Per pcp, baseline BP ~ 110/60s - Continue to monitor 3) HIV - Continue home medications 4) BPH - Hold flomax 2/2 hypotension 5) Heroine dependence - Completed Methadone taper yesterday 6) Chronic RLE skin changes - Local wound care 6) F/E/N: - Regular diet - Monitor electrolytes 7) Prophylaxis: - Hold all chemical DVT prophylaxis 2/2 anemia 8) Dispo: - Once condition improves CODE STATUS: FULL CODE Visit type - Emergency Visit Emergency Visit: Yes ED Registration Date: 05/17/17 Care time: The patient presented to the Emergency Department on the above date and was hospitalized for further evaluation of their emergent condition. - New Patient This patient is new to me today: Yes Date on this admission: 05/18/17 - Critical Care Critical Care patient: No
[2017-05-18] MEDS: RITONAVIR 100 MG TABLET PO SCH (13:01)
[2017-05-18] MEDS: EMTRICITABINE 200MG/TENOFOVIR 300MG PO SCH (13:01)
[2017-05-18] MEDS: DARUNAVIR ETHANOLATE 800 MG TAB PO SCH (13:01)
[2017-05-18 20:45] LABS: BASOPHIL 1.4 % (0-2.0); EOSINOPHIL 5.7 % (0-4.5); MCH 28.6 pg (25.7-33.7); MEAN CELL VOLUME 84.1 fl (80-96); MEAN PLT VOLUME 7.2 fl (7.5-11.1); NEUTROPHILS 48.6 % (42.8-82.8); PLATELET COUNT 259 K/MM3 (134-434); WHITE BLOOD COUNT 4.2 K/mm3 (4.0-10.0)
[2017-05-18] MEDS: ATORVASTATIN CA 10 MG TABLET (FP) PO SCH (21:22)
[2017-05-19 09:04] LABS: MCH 27.7 pg (25.7-33.7); MCHC 32.9 g/dl (32.0-35.9); MEAN CELL VOLUME 84.2 fl (80-96); MEAN PLT VOLUME 6.6 fl (7.5-11.1); PLATELET COUNT 246 K/MM3 (134-434); RDW 16.2 % (11.9-15.9); WHITE BLOOD COUNT 5.8 K/mm3 (4.0-10.0)
[2017-05-19] MEDS ORDERED: PT OWN MED DRAWER 7, Y5N ONE (09:13)
[2017-05-19] MEDS: PANTOPRAZOLE 40 MG TABLET (FP) PO SCH (09:16)
[2017-05-19] MEDS: DARUNAVIR ETHANOLATE 800 MG TAB PO SCH (09:17)
[2017-05-19] MEDS: EMTRICITABINE 200MG/TENOFOVIR 300MG PO SCH (09:17)
[2017-05-19] MEDS: RITONAVIR 100 MG TABLET PO SCH (09:17)
[2017-05-19] MEDS: POLYETHYLENE GLYCOL 3350 119 GM BTL PO SCH (09:18)
[2017-05-19 10:39] VITALS: BP 120/75; PULSE 90; TEMP 99
--- NOTE | 2017-05-19 10:39 | DS ---
Physical Exam: SUBJECTIVE: Patient seen and examined at bedside. Poor historian. Refuses to say why he came to ED. Denies bleeding from any source. Has no complaints and wants to go home. OBJECTIVE: Vital Signs Period Temp Pulse Resp BP Sys/Pham Pulse Ox Last 24 Hr 99.0 F 90 18 120/75 98 PHYSICAL EXAM GENERAL: The patient is awake, alert, and fully oriented, in no acute distress. HEAD: Normal with no signs of trauma. EYES: PERRL, extraocular movements intact, sclera anicteric, conjunctiva clear. LUNGS: Breath sounds equal, clear to auscultation bilaterally, no wheezes, no crackles, no accessory muscle use. HEART: Regular rate and rhythm, S1, S2 without murmur, rub or gallop. ABDOMEN: Soft, nontender, nondistended, normoactive bowel sounds, no guarding, no rebound, no hepatosplenomegaly, no masses. UPPER EXTREMITIES: 2+ pulses, warm, well-perfused, no edema. RLE: Well-healed scars from ankle to knee; small 1cm ulceration lateral malleolous, no exudate; mild swelling anterior ankle, no erythema, no warmth NEUROLOGICAL: Cranial nerves II through XII grossly intact. Normal speech, gait not observed. LABS Laboratory Results - last 24 hr 05/19/17 08:40 WBC 5.8 D RBC 3.55 L Hgb 9.8 L Hct 29.9 L MCV 84.2 MCH 27.7 MCHC 32.9 RDW 16.2 H Plt Count 246 MPV 6.6 L HOSPITAL COURSE: Date of Admission:05/19/17 Date of Discharge: 05/19/17 Minutes to complete discharge: 35 Discharge Summary Reason For Visit: ORTHOSTATIC HYPOTENSION; ANEMIA Current Active Problems Anemia (Acute) Elevated lactic acid level (Acute) Hypotension (Acute) Opioid abuse (Acute) Orthostatic hypotension (Acute) Condition: Improved - Instructions Diet, Activity, Other Instructions: You should follow up with your primary care provider within one week of your discharge. You should have an evaluation of the varicose veins in your left leg. Return to the emergency department for any new or worsening symptoms. Disposition: HOME - Home Medications Comprehensive Discharge Medication List: Ambulatory Orders Darunavir Ethanolate [Prezista -] 800 mg PO DAILY 05/11/17 Emtricitabine/Tenofovir (Tdf) [Truvada 200 mg-300 mg Tablet] 1 each PO DAILY 08/15 Esomeprazole Magnesium 40 mg PO BID 05/11/17 Ritonavir [Norvir -] 100 mg PO DAILY 05/11/17 Simvastatin [Zocor -] 20 mg PO DAILY 05/11/17 Polyethylene Glycol 3350 [Miralax 119 gm Btl -] 17 gm PO DAILY bottle 05/17/17 Tamsulosin HCl [Flomax -] 0.4 mg PO DAILY@0830 #30 tab 05/17/17 This patient is new to me today: Yes Date on this admission: 05/19/17 Emergency Visit: Yes ED Registration Date: 05/19/17 Care time: The patient presented to the Emergency Department on the above date and was hospitalized for further evaluation of their emergent condition. Critical Care patient: No - Discharge Referral Referred to [facility] No
--- NOTE | 2017-05-25 20:30 | EKG ---
Test Reason : Blood Pressure : / mmHG Vent. Rate : 085 BPM Atrial Rate : 085 BPM P-R Int : 182 ms QRS Dur : 100 ms QT Int : 362 ms P-R-T Axes : 026 -18 -03 degrees QTc Int : 430 ms NORMAL SINUS RHYTHM INCOMPLETE RIGHT BUNDLE BRANCH BLOCK MODERATE VOLTAGE CRITERIA FOR LVH, MAY BE NORMAL VARIANT BORDERLINE ECG WHEN COMPARED WITH ECG OF 12-MAY-2017 06:41, PREMATURE VENTRICULAR COMPLEXES ARE NO LONGER PRESENT SUBMITTED ON 05-25-2017 REPEAT EKG IF CLINICALLY INDICATED Confirmed by ZARA KOHLER MD ([id number] on 05/25/2017 8:29:40 PM Referred By: Confirmed By:ZARA KOHLER MD
== END 2017-05-19 12:54 | disposition home or self-care (01) | DRG 315 ==
LOC: JER 12:51 → JERBED 17:27 → J7W 22:12 → OBSVTOIN 05-19 07:34
PROVIDERS: ADMIT Internal Medicine; ATTEND Nurse Practitioner Acute Care
PROC: 30233N1 Transfusion of Nonautologous Red Blood Cells into Peripheral Vein, Percutaneous Approach (ICD-10-PCS; principal; 2017-05-17)
DX: I95.89 Other hypotension (principal); F11.20 Opioid dependence, uncomplicated; I10 Essential (primary) hypertension; E78.00 Pure hypercholesterolemia, unspecified; K21.9 Gastro-esophageal reflux disease without esophagitis; N40.0 Benign prostatic hyperplasia without lower urinary tract symptoms; F32.9 Major depressive disorder, single episode, unspecified; D64.9 Anemia, unspecified; K59.09 Other constipation; Z21 Asymptomatic human immunodeficiency virus [HIV] infection status; Z87.891 Personal history of nicotine dependence
CPT/HCPCS: 36415; 36430; 36511; 80053; 84484; 85025; 85027; 85610; 86850; 86900; 86901; 86922; 93005; 93010; 99285-25; G0378; P9038; P9058

== ENCOUNTER 2022-09-23 18:25 | Inpatient (IN) | payer OTHER ==
[2022-09-23 19:38] VITALS: BMI 25.8
[2022-09-23] MEDS ORDERED: guaiFENesin 200 MG/10 ML 10 ML UNIT-DOSE CUPS PO PRN (20:55)
[2022-09-23] MEDS ORDERED: BISMUTH SUBSALICYLATE 524 MG/30 ML PO PRN (20:55)
[2022-09-23] MEDS ORDERED: MAG HYDROX/AL HYDROX/SIMETH 30 ML UNIT-DOSE CUP PO PRN (20:55)
[2022-09-23] MEDS ORDERED: BENZOCAINE/MENTHOL (CHLORASEPTIC ) LOZENGE MM PRN (20:55)
[2022-09-23] MEDS ORDERED: ONDANSETRON *ODT* 4 MG TABLET SL PRN (20:55)
[2022-09-23] MEDS ORDERED: NALOXONE HCL (KLOXXADO) 8 MG SPRAY NS PRN (20:55)
[2022-09-23] MEDS ORDERED: DICYCLOMINE HCL 10 MG CAPSULE PO PRN (20:55)
[2022-09-23] MEDS ORDERED: NALOXONE HCL 0.4 MG/ML VIAL IM PRN (20:55)
[2022-09-23] MEDS ORDERED: P-EPHED 60MG/TRIPROLIDI 2.5MG TABLET PO PRN (20:55)
[2022-09-23] MEDS ORDERED: ACETAMINOPHEN 325 MG TABLET (FP) PO PRN ×2 (20:55)
[2022-09-23] MEDS ORDERED: POLYETHYLENE GLYCOL (HEALTHYLAX) 3350 17 GM PACKET PO PRN (20:55)
[2022-09-23] MEDS ORDERED: IBUPROFEN 400 MG TABLET (FP) PO PRN (20:55)
[2022-09-23] MEDS ORDERED: MAGNESIUM HYDROX 2400MG/30ML ORAL SUSPENSION 30 ML CUP PO PRN (20:55)
[2022-09-23] MEDS ORDERED: NICOTINE POLACRILEX 2 MG GUM BUC PRN (20:55)
[2022-09-23] MEDS ORDERED: IBUPROFEN 600 MG TABLET (FP) PO PRN (20:55)
[2022-09-23] MEDS ORDERED: diazePAM 5 MG TABLET PO PRN (22:08)
[2022-09-23] MEDS: THIAMINE HCL 100 MG TABLET (FP) PO SCH (22:25)
[2022-09-23] MEDS: diazePAM 5 MG TABLET PO SCH (22:28)
[2022-09-23] MEDS: ATORVASTATIN CA 10 MG TABLET (FP) PO SCH (22:54)
[2022-09-24] MEDS: diazePAM 5 MG TABLET PO SCH ×4 (06:00→22:35)
[2022-09-24] MEDS: TAMSULOSIN HCL 0.4 MG CAP PO SCH (09:32)
[2022-09-24] MEDS ORDERED: PATIENT'S OWN MEDICATION (NON-FORMULARY) (Amoxicillin [Amoxicillin] 875 MG Tablet) PO SCH (10:00)
[2022-09-24] MEDS: PRENATAL VITAMINS W/ FOLIC ACID TABLET (FP) PO SCH (10:48)
[2022-09-24] MEDS: DARUNAVIR/COB/EMTRI/TENOF (SYMTUZA) TABLET (NF) PO SCH (10:48)
[2022-09-24] MEDS: PANTOPRAZOLE 40 MG TABLET PO SCH ×2 (10:49→22:35)
[2022-09-24] MEDS: CHLORHEXIDINE GLUCONATE 0.12% 15ML CUP MM SCH ×2 (10:53→22:35)
[2022-09-24] MEDS: amLODIPine BESYLATE 5 MG TABLET (FP) PO SCH (10:53)
[2022-09-24 11:36] LABS: HEMATOCRIT 34.7 % (35.4-49); HEMOGLOBIN 11.2 GM/dL (11.7-16.9); MCH 29.5 pg (25.7-33.7); MCHC 32.3 g/dl (32.0-35.9); MEAN CELL VOLUME 91.4 fl (80-96); MEAN PLT VOLUME 7.4 fl (7.5-11.1); PLATELET COUNT 262 10^3/uL (134-434); RDW 15.6 % (11.9-15.9); WHITE BLOOD COUNT 3.9 K/mm3 (4.0-10.0)
[2022-09-24] MEDS: FOLIC ACID 1 MG TABLET (FP) PO SCH (11:50)
[2022-09-24 12:17] LABS: ALBUMIN 3.3 g/dl (3.4-5.0); BLOOD UREA NITROGEN 23.2 mg/dL (7-18); CALCIUM 9.3 mg/dL (8.5-10.1)
[2022-09-24 12:19] LABS: CREATININE 1.1 mg/dL (0.55-1.3)
[2022-09-24 12:21] LABS: BILIRUBIN,TOTAL 0.3 mg/dL (0.2-1)
[2022-09-24] MEDS ORDERED: cloNIDine HCL 0.1 MG TABLET PO PRN (12:49)
[2022-09-24] MEDS ORDERED: methaDONE HCL 10 MG TABLET (FOR DETOX USE ONLY) PO ONE (12:49)
[2022-09-24] MEDS: AMOXICILLIN 500 MG CAPSULE (FP) PO SCH ×2 (13:03→22:35)
[2022-09-24] MEDS: ATORVASTATIN CA 10 MG TABLET (FP) PO SCH (22:35)
[2022-09-24] MEDS: THIAMINE HCL 100 MG TABLET (FP) PO SCH (22:35)
[2022-09-25] MEDS: AMOXICILLIN 500 MG CAPSULE (FP) PO SCH ×3 (05:10→22:37)
[2022-09-25] MEDS: diazePAM 5 MG TABLET PO SCH ×3 (05:10→22:38)
[2022-09-25] MEDS: TAMSULOSIN HCL 0.4 MG CAP PO SCH (09:14)
[2022-09-25] MEDS: PANTOPRAZOLE 40 MG TABLET PO SCH ×2 (10:17→22:39)
[2022-09-25] MEDS: amLODIPine BESYLATE 5 MG TABLET (FP) PO SCH (10:18)
[2022-09-25] MEDS: FOLIC ACID 1 MG TABLET (FP) PO SCH (10:18)
[2022-09-25] MEDS: PRENATAL VITAMINS W/ FOLIC ACID TABLET (FP) PO SCH (10:21)
[2022-09-25] MEDS: DARUNAVIR/COB/EMTRI/TENOF (SYMTUZA) TABLET (NF) PO SCH (11:13)
[2022-09-25] MEDS: CHLORHEXIDINE GLUCONATE 0.12% 15ML CUP MM SCH ×2 (11:13→22:38)
[2022-09-25] MEDS: THIAMINE HCL 100 MG TABLET (FP) PO SCH (22:37)
[2022-09-25] MEDS: ATORVASTATIN CA 10 MG TABLET (FP) PO SCH (22:37)
[2022-09-26] MEDS: AMOXICILLIN 500 MG CAPSULE (FP) PO SCH ×3 (05:59→22:18)
[2022-09-26] MEDS: diazePAM 5 MG TABLET PO SCH ×2 (05:59→18:01)
[2022-09-26] MEDS: TAMSULOSIN HCL 0.4 MG CAP PO SCH (09:09)
[2022-09-26] MEDS ORDERED: methaDONE HCL 10 MG TABLET (FOR DETOX USE ONLY) PO ONE (10:00)
[2022-09-26] MEDS: PRENATAL VITAMINS W/ FOLIC ACID TABLET (FP) PO SCH (10:18)
[2022-09-26] MEDS: FOLIC ACID 1 MG TABLET (FP) PO SCH (10:19)
[2022-09-26] MEDS: CHLORHEXIDINE GLUCONATE 0.12% 15ML CUP MM SCH ×2 (10:20→22:19)
[2022-09-26] MEDS: DARUNAVIR/COB/EMTRI/TENOF (SYMTUZA) TABLET (NF) PO SCH (10:20)
[2022-09-26] MEDS: PANTOPRAZOLE 40 MG TABLET PO SCH ×2 (10:20→22:18)
[2022-09-26] MEDS: amLODIPine BESYLATE 5 MG TABLET (FP) PO SCH (10:20)
[2022-09-26] MEDS: LOPERAMIDE HCL 2 MG CAPSULE PO PRN (18:04)
[2022-09-26] MEDS: THIAMINE HCL 100 MG TABLET (FP) PO SCH (22:18)
[2022-09-26] MEDS: SUVOREXANT 5 MG TABLET PO PRN (22:19)
[2022-09-26] MEDS: ATORVASTATIN CA 10 MG TABLET (FP) PO SCH (22:19)
[2022-09-27] MEDS: AMOXICILLIN 500 MG CAPSULE (FP) PO SCH ×3 (05:37→22:03)
[2022-09-27] MEDS ORDERED: diazePAM 5 MG TABLET PO ONE (06:00)
[2022-09-27] MEDS: TAMSULOSIN HCL 0.4 MG CAP PO SCH (08:58)
[2022-09-27] MEDS: PRENATAL VITAMINS W/ FOLIC ACID TABLET (FP) PO SCH (10:27)
[2022-09-27] MEDS: FOLIC ACID 1 MG TABLET (FP) PO SCH (10:27)
[2022-09-27] MEDS: amLODIPine BESYLATE 5 MG TABLET (FP) PO SCH (10:28)
[2022-09-27] MEDS: CHLORHEXIDINE GLUCONATE 0.12% 15ML CUP MM SCH ×2 (10:29→22:04)
[2022-09-27] MEDS: PANTOPRAZOLE 40 MG TABLET PO SCH ×2 (10:31→22:03)
[2022-09-27] MEDS: DARUNAVIR/COB/EMTRI/TENOF (SYMTUZA) TABLET (NF) PO SCH (10:31)
[2022-09-27] MEDS ORDERED: DIPHENOXYLATE 2.5/ATROPINE.025 1 COMBO TABLET PO ONE (12:12)
[2022-09-27] MEDS: SUVOREXANT 5 MG TABLET PO PRN (22:03)
[2022-09-27] MEDS: ATORVASTATIN CA 10 MG TABLET (FP) PO SCH (22:03)
[2022-09-27] MEDS: THIAMINE HCL 100 MG TABLET (FP) PO SCH (22:03)
[2022-09-28] MEDS: AMOXICILLIN 500 MG CAPSULE (FP) PO SCH ×3 (05:39→22:13)
[2022-09-28] MEDS: TAMSULOSIN HCL 0.4 MG CAP PO SCH (07:56)
[2022-09-28] MEDS ORDERED: methaDONE HCL 10 MG TABLET (FOR DETOX USE ONLY) PO ONE (10:00)
[2022-09-28] MEDS: FOLIC ACID 1 MG TABLET (FP) PO SCH (10:42)
[2022-09-28] MEDS: amLODIPine BESYLATE 5 MG TABLET (FP) PO SCH (10:43)
[2022-09-28] MEDS: DARUNAVIR/COB/EMTRI/TENOF (SYMTUZA) TABLET (NF) PO SCH (10:43)
[2022-09-28] MEDS: CHLORHEXIDINE GLUCONATE 0.12% 15ML CUP MM SCH ×2 (10:43→22:13)
[2022-09-28] MEDS: PRENATAL VITAMINS W/ FOLIC ACID TABLET (FP) PO SCH (10:43)
[2022-09-28] MEDS: PANTOPRAZOLE 40 MG TABLET PO SCH ×2 (10:43→22:13)
[2022-09-28] MEDS: LOPERAMIDE HCL 2 MG CAPSULE PO PRN ×2 (13:33→22:14)
[2022-09-28] MEDS: ATORVASTATIN CA 10 MG TABLET (FP) PO SCH (22:13)
[2022-09-28] MEDS: THIAMINE HCL 100 MG TABLET (FP) PO SCH (22:13)
[2022-09-29] MEDS: AMOXICILLIN 500 MG CAPSULE (FP) PO SCH (05:47)
[2022-09-29] MEDS: TAMSULOSIN HCL 0.4 MG CAP PO SCH (08:32)
[2022-09-29] MEDS ORDERED: LACTULOSE 20 GM/30 ML UDC (FOR ORAL USE ONLY) PO SCH (10:00)
[2022-09-29] MEDS: FOLIC ACID 1 MG TABLET (FP) PO SCH (10:19)
[2022-09-29] MEDS: DARUNAVIR/COB/EMTRI/TENOF (SYMTUZA) TABLET (NF) PO SCH (10:19)
[2022-09-29] MEDS: amLODIPine BESYLATE 5 MG TABLET (FP) PO SCH (10:19)
[2022-09-29] MEDS: PANTOPRAZOLE 40 MG TABLET PO SCH (10:19)
[2022-09-29] MEDS: CHLORHEXIDINE GLUCONATE 0.12% 15ML CUP MM SCH (10:20)
[2022-09-29] MEDS: PRENATAL VITAMINS W/ FOLIC ACID TABLET (FP) PO SCH (10:20)
[2022-09-29 10:29] VITALS: BP 101/58; PULSE 83; RESP 20; TEMP 98
== END 2022-09-29 12:20 | disposition other institution (70) | DRG 897 ==
LOC: YASAS 18:25 → Y6N 21:07
PROVIDERS: ADMIT Allergy & Immunology; ATTEND Family Medicine
PROC: HZ2ZZZZ Detoxification Services for Substance Abuse Treatment (ICD-10-PCS; principal; 2022-09-23)
DX: F11.23 Opioid dependence with withdrawal (principal); F14.20 Cocaine dependence, uncomplicated; F19.282 Other psychoactive substance dependence with psychoactive substance-induced sleep disorder; E72.20 Disorder of urea cycle metabolism, unspecified; F10.230 Alcohol dependence with withdrawal, uncomplicated; Z21 Asymptomatic human immunodeficiency virus [HIV] infection status; I10 Essential (primary) hypertension; K21.9 Gastro-esophageal reflux disease without esophagitis; E78.5 Hyperlipidemia, unspecified; N40.1 Benign prostatic hyperplasia with lower urinary tract symptoms; Z87.891 Personal history of nicotine dependence; N39.43 Post-void dribbling
CPT/HCPCS: 36415; 80053; 82140; 85027; 86780; 93005; 93010; C9803-CS; U0003; U0005

== ENCOUNTER 2022-09-29 12:34 | Inpatient (IN) | payer OTHER ==
[2022-09-29] MEDS ORDERED: LOPERAMIDE HCL 2 MG CAPSULE PO PRN (12:39)
[2022-09-29] MEDS ORDERED: guaiFENesin 200 MG/10 ML 10 ML UNIT-DOSE CUPS PO PRN (12:39)
[2022-09-29] MEDS ORDERED: NICOTINE 10 MG CARTRIDGE (INHALER) IH PRN (12:39)
[2022-09-29] MEDS ORDERED: POLYETHYLENE GLYCOL (HEALTHYLAX) 3350 17 GM PACKET PO PRN (12:39)
[2022-09-29] MEDS ORDERED: MAGNESIUM HYDROX 2400MG/30ML ORAL SUSPENSION 30 ML CUP PO PRN (12:39)
[2022-09-29] MEDS ORDERED: MAG HYDROX/AL HYDROX/SIMETH 30 ML UNIT-DOSE CUP PO PRN (12:39)
[2022-09-29] MEDS ORDERED: NICOTINE 7 MG/24 HOURS TOPICAL PATCH TD PRN (12:39)
[2022-09-29] MEDS ORDERED: NICOTINE POLACRILEX 2 MG GUM BUC PRN (12:39)
[2022-09-29] MEDS ORDERED: BENZOCAINE/MENTHOL (CHLORASEPTIC ) LOZENGE MM PRN (12:39)
[2022-09-29] MEDS ORDERED: hydrOXYzine PAMOATE 25 MG CAPSULE (FP) PO PRN (12:39)
[2022-09-29] MEDS: AMOXICILLIN 500 MG CAPSULE (FP) PO SCH ×2 (15:06→21:23)
[2022-09-29] MEDS: LACTULOSE 20 GM/30 ML UDC (FOR ORAL USE ONLY) PO SCH ×3 (15:08→21:23)
[2022-09-29] MEDS: ACETAMINOPHEN 325 MG TABLET (FP) PO PRN (17:12)
[2022-09-29] MEDS: MELATONIN 5 MG TABLETS PO SCH (21:22)
[2022-09-29] MEDS: THIAMINE HCL 100 MG TABLET (FP) PO SCH (21:22)
[2022-09-29] MEDS: ATORVASTATIN CA 10 MG TABLET (FP) PO SCH (21:23)
[2022-09-30] MEDS: AMOXICILLIN 500 MG CAPSULE (FP) PO SCH ×3 (06:23→21:25)
[2022-09-30] MEDS: DARUNAVIR/COB/EMTRI/TENOF (SYMTUZA) TABLET (NF) PO SCH (07:25)
[2022-09-30] MEDS ORDERED: TAMSULOSIN HCL 0.4 MG CAP PO SCH (08:30)
[2022-09-30] MEDS: LACTULOSE 20 GM/30 ML UDC (FOR ORAL USE ONLY) PO SCH ×2 (10:23→14:29)
[2022-09-30] MEDS: amLODIPine BESYLATE 5 MG TABLET (FP) PO SCH (10:24)
[2022-09-30] MEDS: PRENATAL VITAMINS W/ FOLIC ACID TABLET (FP) PO SCH (10:24)
[2022-09-30] MEDS: FAMOTIDINE 20 MG TABLET PO SCH (10:24)
[2022-09-30] MEDS ORDERED: PNEUMOC 20-VAL CONJ-DIP CRM/PF 0.5 ML SYRINGE IM ONE (12:00)
[2022-09-30] MEDS ORDERED: QUEtiapine FUMARATE 50 MG TABLET PO PRN (13:58)
[2022-09-30] MEDS: MELATONIN 5 MG TABLETS PO SCH (21:24)
[2022-09-30] MEDS: THIAMINE HCL 100 MG TABLET (FP) PO SCH (21:24)
[2022-09-30] MEDS: ATORVASTATIN CA 10 MG TABLET (FP) PO SCH (21:25)
[2022-10-01] MEDS: AMOXICILLIN 500 MG CAPSULE (FP) PO SCH ×3 (06:25→21:12)
[2022-10-01] MEDS: DARUNAVIR/COB/EMTRI/TENOF (SYMTUZA) TABLET (NF) PO SCH (07:05)
[2022-10-01] MEDS: PRENATAL VITAMINS W/ FOLIC ACID TABLET (FP) PO SCH (10:15)
[2022-10-01] MEDS: FAMOTIDINE 20 MG TABLET PO SCH (10:15)
[2022-10-01] MEDS: amLODIPine BESYLATE 5 MG TABLET (FP) PO SCH (10:16)
[2022-10-01] MEDS: MELATONIN 5 MG TABLETS PO SCH (21:12)
[2022-10-01] MEDS: ATORVASTATIN CA 10 MG TABLET (FP) PO SCH (21:12)
[2022-10-01] MEDS: THIAMINE HCL 100 MG TABLET (FP) PO SCH (21:12)
[2022-10-01] MEDS ORDERED: QUEtiapine FUMARATE 50 MG TABLET PO PRN (22:00)
[2022-10-02] MEDS: AMOXICILLIN 500 MG CAPSULE (FP) PO SCH ×3 (06:08→21:13)
[2022-10-02] MEDS: DARUNAVIR/COB/EMTRI/TENOF (SYMTUZA) TABLET (NF) PO SCH (07:09)
[2022-10-02] MEDS: PRENATAL VITAMINS W/ FOLIC ACID TABLET (FP) PO SCH (10:02)
[2022-10-02] MEDS: FAMOTIDINE 20 MG TABLET PO SCH (10:02)
[2022-10-02] MEDS: amLODIPine BESYLATE 5 MG TABLET (FP) PO SCH (10:02)
[2022-10-02] MEDS: THIAMINE HCL 100 MG TABLET (FP) PO SCH (21:13)
[2022-10-02] MEDS: ATORVASTATIN CA 10 MG TABLET (FP) PO SCH (21:13)
[2022-10-02] MEDS: QUEtiapine FUMARATE 100 MG TABLET (FP) PO PRN (21:15)
[2022-10-03] MEDS: PRENATAL VITAMINS W/ FOLIC ACID TABLET (FP) PO SCH (09:53)
[2022-10-03] MEDS: FAMOTIDINE 20 MG TABLET PO SCH (09:53)
[2022-10-03] MEDS: amLODIPine BESYLATE 5 MG TABLET (FP) PO SCH (09:54)
[2022-10-03] MEDS: DARUNAVIR/COB/EMTRI/TENOF (SYMTUZA) TABLET (NF) PO SCH (09:54)
[2022-10-03] MEDS: IBUPROFEN 400 MG TABLET (FP) PO PRN (20:11)
[2022-10-03] MEDS: THIAMINE HCL 100 MG TABLET (FP) PO SCH (21:14)
[2022-10-03] MEDS: ATORVASTATIN CA 10 MG TABLET (FP) PO SCH (21:14)
[2022-10-03] MEDS: QUEtiapine FUMARATE 100 MG TABLET (FP) PO PRN (21:15)
[2022-10-04] MEDS: DARUNAVIR/COB/EMTRI/TENOF (SYMTUZA) TABLET (NF) PO SCH (07:13)
[2022-10-04] MEDS: FAMOTIDINE 20 MG TABLET PO SCH (10:31)
[2022-10-04] MEDS: amLODIPine BESYLATE 5 MG TABLET (FP) PO SCH (10:31)
[2022-10-04] MEDS: PRENATAL VITAMINS W/ FOLIC ACID TABLET (FP) PO SCH (10:31)
[2022-10-04] MEDS: THIAMINE HCL 100 MG TABLET (FP) PO SCH (21:19)
[2022-10-04] MEDS: ATORVASTATIN CA 10 MG TABLET (FP) PO SCH (21:20)
[2022-10-04] MEDS: QUEtiapine FUMARATE 100 MG TABLET (FP) PO PRN (21:20)
[2022-10-05] MEDS: DARUNAVIR/COB/EMTRI/TENOF (SYMTUZA) TABLET (NF) PO SCH (07:39)
[2022-10-05] MEDS: FAMOTIDINE 20 MG TABLET PO SCH (09:42)
[2022-10-05] MEDS: PRENATAL VITAMINS W/ FOLIC ACID TABLET (FP) PO SCH (09:42)
[2022-10-05] MEDS: IBUPROFEN 400 MG TABLET (FP) PO PRN (11:00)
[2022-10-05] MEDS: THIAMINE HCL 100 MG TABLET (FP) PO SCH (21:20)
[2022-10-05] MEDS: QUEtiapine FUMARATE 100 MG TABLET (FP) PO PRN (21:21)
[2022-10-05] MEDS: ATORVASTATIN CA 10 MG TABLET (FP) PO SCH (21:21)
[2022-10-06] MEDS: DARUNAVIR/COB/EMTRI/TENOF (SYMTUZA) TABLET (NF) PO SCH (07:00)
[2022-10-06] MEDS: FAMOTIDINE 20 MG TABLET PO SCH (10:10)
[2022-10-06] MEDS: PRENATAL VITAMINS W/ FOLIC ACID TABLET (FP) PO SCH (10:10)
[2022-10-06] MEDS: IBUPROFEN 400 MG TABLET (FP) PO PRN (10:13)
[2022-10-06] MEDS ORDERED: NALTREXONE HCL 50 MG TABLET PO SCH (14:30)
[2022-10-06] MEDS: THIAMINE HCL 100 MG TABLET (FP) PO SCH (21:25)
[2022-10-06] MEDS: ATORVASTATIN CA 10 MG TABLET (FP) PO SCH (21:25)
[2022-10-06] MEDS: QUEtiapine FUMARATE 100 MG TABLET (FP) PO PRN (21:26)
[2022-10-07] MEDS: DARUNAVIR/COB/EMTRI/TENOF (SYMTUZA) TABLET (NF) PO SCH (07:30)
[2022-10-07] MEDS: FAMOTIDINE 20 MG TABLET PO SCH (10:10)
[2022-10-07] MEDS: PRENATAL VITAMINS W/ FOLIC ACID TABLET (FP) PO SCH (10:10)
[2022-10-07] MEDS: IBUPROFEN 400 MG TABLET (FP) PO PRN (10:22)
[2022-10-07] MEDS: ATORVASTATIN CA 10 MG TABLET (FP) PO SCH (21:31)
[2022-10-07] MEDS: QUEtiapine FUMARATE 100 MG TABLET (FP) PO PRN (21:31)
[2022-10-07] MEDS: MELATONIN 5 MG TABLETS PO PRN (21:31)
[2022-10-07] MEDS: THIAMINE HCL 100 MG TABLET (FP) PO SCH (21:32)
[2022-10-08] MEDS: IBUPROFEN 400 MG TABLET (FP) PO PRN ×3 (06:34→21:21)
[2022-10-08] MEDS: DARUNAVIR/COB/EMTRI/TENOF (SYMTUZA) TABLET (NF) PO SCH (07:17)
[2022-10-08] MEDS: PRENATAL VITAMINS W/ FOLIC ACID TABLET (FP) PO SCH (10:02)
[2022-10-08] MEDS: FAMOTIDINE 20 MG TABLET PO SCH (10:03)
[2022-10-08] MEDS: ACETAMINOPHEN 325 MG TABLET (FP) PO PRN (10:04)
[2022-10-08] MEDS: QUEtiapine FUMARATE 100 MG TABLET (FP) PO PRN (21:20)
[2022-10-08] MEDS: ATORVASTATIN CA 10 MG TABLET (FP) PO SCH (21:20)
[2022-10-08] MEDS: THIAMINE HCL 100 MG TABLET (FP) PO SCH (21:20)
[2022-10-08] MEDS: MELATONIN 5 MG TABLETS PO PRN (21:20)
[2022-10-09] MEDS: IBUPROFEN 400 MG TABLET (FP) PO PRN (07:12)
[2022-10-09] MEDS: DARUNAVIR/COB/EMTRI/TENOF (SYMTUZA) TABLET (NF) PO SCH (07:35)
[2022-10-09] MEDS: PRENATAL VITAMINS W/ FOLIC ACID TABLET (FP) PO SCH (10:02)
[2022-10-09] MEDS: FAMOTIDINE 20 MG TABLET PO SCH (10:02)
[2022-10-09] MEDS: ACETAMINOPHEN 325 MG TABLET (FP) PO PRN (10:03)
[2022-10-09] MEDS ORDERED: INSULIN SLIDING SCALE (NOVOLOG) 1 VIAL SQ ONE (14:19)
[2022-10-09] MEDS: QUEtiapine FUMARATE 100 MG TABLET (FP) PO PRN (21:05)
[2022-10-09] MEDS: METHOCARBAMOL 500 MG TABLET PO PRN (21:05)
[2022-10-09] MEDS: THIAMINE HCL 100 MG TABLET (FP) PO SCH (21:05)
[2022-10-09] MEDS: ATORVASTATIN CA 10 MG TABLET (FP) PO SCH (21:05)
[2022-10-09] MEDS: MELATONIN 5 MG TABLETS PO PRN (21:05)
[2022-10-10] MEDS: METHOCARBAMOL 500 MG TABLET PO PRN ×3 (05:50→21:52)
[2022-10-10] MEDS: DARUNAVIR/COB/EMTRI/TENOF (SYMTUZA) TABLET (NF) PO SCH (07:05)
[2022-10-10] MEDS: FAMOTIDINE 20 MG TABLET PO SCH (10:25)
[2022-10-10] MEDS: PRENATAL VITAMINS W/ FOLIC ACID TABLET (FP) PO SCH (10:25)
[2022-10-10] MEDS: ACETAMINOPHEN 325 MG TABLET (FP) PO PRN (18:17)
[2022-10-10] MEDS: ATORVASTATIN CA 10 MG TABLET (FP) PO SCH (21:52)
[2022-10-10] MEDS: QUEtiapine FUMARATE 100 MG TABLET (FP) PO PRN (21:52)
[2022-10-10] MEDS: THIAMINE HCL 100 MG TABLET (FP) PO SCH (21:52)
[2022-10-10] MEDS: MELATONIN 5 MG TABLETS PO PRN (21:56)
[2022-10-11] MEDS: METHOCARBAMOL 500 MG TABLET PO PRN ×2 (06:09→21:49)
[2022-10-11] MEDS: DARUNAVIR/COB/EMTRI/TENOF (SYMTUZA) TABLET (NF) PO SCH (07:02)
[2022-10-11] MEDS: PRENATAL VITAMINS W/ FOLIC ACID TABLET (FP) PO SCH (10:06)
[2022-10-11] MEDS: FAMOTIDINE 20 MG TABLET PO SCH (10:06)
[2022-10-11] MEDS: QUEtiapine FUMARATE 100 MG TABLET (FP) PO PRN (21:49)
[2022-10-11] MEDS: MELATONIN 5 MG TABLETS PO PRN (21:50)
[2022-10-11] MEDS: ATORVASTATIN CA 10 MG TABLET (FP) PO SCH (21:50)
[2022-10-11] MEDS: THIAMINE HCL 100 MG TABLET (FP) PO SCH (21:50)
[2022-10-12] MEDS: METHOCARBAMOL 500 MG TABLET PO PRN ×4 (05:46→21:52)
[2022-10-12] MEDS: DARUNAVIR/COB/EMTRI/TENOF (SYMTUZA) TABLET (NF) PO SCH (07:39)
[2022-10-12] MEDS: FAMOTIDINE 20 MG TABLET PO SCH (10:48)
[2022-10-12] MEDS: PRENATAL VITAMINS W/ FOLIC ACID TABLET (FP) PO SCH (10:48)
[2022-10-12] MEDS: ACETAMINOPHEN 325 MG TABLET (FP) PO PRN (12:52)
[2022-10-12] MEDS: ATORVASTATIN CA 10 MG TABLET (FP) PO SCH (21:52)
[2022-10-12] MEDS: QUEtiapine FUMARATE 100 MG TABLET (FP) PO PRN (21:52)
[2022-10-12] MEDS: THIAMINE HCL 100 MG TABLET (FP) PO SCH (21:52)
[2022-10-12] MEDS: MELATONIN 5 MG TABLETS PO PRN (21:53)
[2022-10-13] MEDS: METHOCARBAMOL 500 MG TABLET PO PRN (06:44)
[2022-10-13] MEDS: DARUNAVIR/COB/EMTRI/TENOF (SYMTUZA) TABLET (NF) PO SCH (07:07)
[2022-10-13 07:18] VITALS: BP 102/71; PULSE 89; RESP 18; TEMP 98.2
== END 2022-10-13 09:17 | disposition home or self-care (01) | DRG 895 ==
LOC: YASAS 12:34 → Y3W 12:36
PROVIDERS: ADMIT Allergy & Immunology; ATTEND Psychiatry & Neurology Pain Medicine
PROC: HZ42ZZZ Group Counseling for Substance Abuse Treatment, Cognitive-Behavioral (ICD-10-PCS; principal; 2022-09-29)
DX: F11.20 Opioid dependence, uncomplicated (principal); F14.20 Cocaine dependence, uncomplicated; E72.20 Disorder of urea cycle metabolism, unspecified; F10.20 Alcohol dependence, uncomplicated; E78.5 Hyperlipidemia, unspecified; I10 Essential (primary) hypertension; Z21 Asymptomatic human immunodeficiency virus [HIV] infection status; M79.604 Pain in right leg; N40.1 Benign prostatic hyperplasia with lower urinary tract symptoms; N39.43 Post-void dribbling; Z96.641 Presence of right artificial hip joint; Z86.718 Personal history of other venous thrombosis and embolism
CPT/HCPCS: 36415; 82140; 82746; 86803; 87522; 90677